=== PATIENT | female | born 1990 | race Caucasian/White ===

== ENCOUNTER → 2016-12-31 | Outpatient (CLI) | payer OTHER ==
[~2016-12-31] MED LIST: ACHD5005 PO; BIRTH CONTROL PO; GABAPENTIN PO; LINA5TAB PO; MAGNESIUM PO; METFORMIN PO; PREVACID PO; SERT100T8 PO; SPIRONOLACTONE PO; VITAMIN D PO
== END ==
LOC: LAB 16:51
PROVIDERS: ATTEND Family Medicine
DX: Z02.0 Encounter for examination for admission to educational institution (principal); Z11.1 Encounter for screening for respiratory tuberculosis
CPT/HCPCS: 36415; 86480

== ENCOUNTER → 2017-03-12 | Outpatient (CLI) | payer OTHER ==
[2017-03-12 12:13] LABS: MEAN PLATELET VOLUME 9.6 FL (7.4-10.4); RED BLOOD COUNT 4.77 10^6/uL (4.35-5.85); RED CELL DISTRIBUTION WIDTH 12.5 % (10.0-14.5); WHITE BLOOD COUNT 5.9 10^3/uL (4.3-11.0)
[2017-03-12 12:30] LABS: ALANINE AMINOTRANSFERASE 14 U/L (0-55); ALBUMIN 3.9 GM/DL (3.2-4.5); ANION GAP 8 MMOL/L (5-14); ASPARTATE AMINO TRANSFERASE 21 U/L (5-34); BILIRUBIN,TOTAL 0.4 MG/DL (0.1-1.0); BLOOD UREA NITROGEN 9 MG/DL (7-18); BUN/CREATININE RATIO 12; CALCIUM 9.2 MG/DL (8.5-10.1); CARBON DIOXIDE 25 MMOL/L (21-32); CHLORIDE 105 MMOL/L (98-107); CREATININE SERUM 0.77 MG/DL (0.60-1.30); GFR ESTIMATED > 60; GLUCOSE 99 MG/DL (70-105); POTASSIUM 4.2 MMOL/L (3.6-5.0); SODIUM 138 MMOL/L (135-145)
[2017-03-12 12:50] LABS: THYROID STIMULATING HORMONE 2.36 UIU/ML (0.35-4.94)
== END ==
LOC: LAB 11:54
PROVIDERS: ATTEND Family Medicine
DX: R03.0 Elevated blood-pressure reading, without diagnosis of hypertension (principal); F33.9 Major depressive disorder, recurrent, unspecified; E22.1 Hyperprolactinemia
CPT/HCPCS: 36415; 80053; 84146; 84443; 85027

== ENCOUNTER 2017-08-13 14:47 | Emergency (ER) | payer OTHER ==
[~2017-08-13] VITALS: Ht 160 cm; Wt 91.2 kg
[2017-08-13] MEDS ORDERED: NS IV 500 ML 500 ML IV ONE (15:07)
--- NOTE | 2017-08-13 15:12 | ED Neurological Problem ---
General Chief Complaint: Neuro-Stroke Like Symptoms Stated Complaint: RIGHT SIDE ARM HEAVINESS SLURRED SPEACH Nursing Triage Note: ARRIVED VIA AMB WITH COMPLAINTS OF SLURRED SPEECH AND RIGHT ARM WEAKNESS THAT STARTED AT APPX 1415 LASTING APPX 3 MINUTES. PT STATES NOW SHE JUST FEELS WEAK ALL OVER. PT STATES SHE STARTED A KETO DIET 1 WEEK AGO. Nursing Sepsis Screen: No Definite Risk Source: patient Exam Limitations: no limitations History of Present Illness Date Seen by Provider: Aug 13, 2017 Time Seen by Provider: 14:52 Initial Comments Patient presents to ER by private conveyance with her and friend with a chief complaint she was riding around the car with him when she began to have a pressure willing up the back of her neck and occipital region headache that traveled to the top of her head. She rates it now is a 1-2 out of 10. She says she has a history of occasional tension headaches. She says she also started having numbness and tingling specimen her right arm and her left face and left tongue. She says she started having weakness and couldn't hold on to her phone with either her hands. She was hyperventilating. She has no personal or family history of stroke or heart attack. She denies alcohol, drugs or tobacco usage. She does have high blood pressure for which she uses metoprolol 50 twice a day. She's never had symptoms like this before she denies a history of migraine headaches or other neurologic symptoms. He is having no blindness, blurry vision , double vision, nausea, chest pain, abdominal pain, diarrhea, rash, fever, chills, shortness of breath. She was also having some slurred speech at that time. Last known well time was witnessed by family at approximately 1415. By the time she presented to the ER all her symptoms had resolved. She is on Sprintec Allergies and Home Medications Allergies Coded Allergies: Penicillins (Unverified Allergy, Unknown, PT TOLERATED AMPICILLIN WITH NO REACTION, 12/16/13) PT HAS NEVER TAKEN PENICILLINS DUE TO A FAMILY TENDENCY TO HAVE SEVERE ALLERGIC REACTIONS Home Medications Hydrocodone Bit/Acetaminophen 1 Tab Tab, 1 TAB PO Q4H PRN for PAIN Prescribed by: BRIEN RAMIRES on 12/16/13 1736 Linagliptin 5 Mg Tablet, 5 MG PO DAILY Prescribed by: VALERIE LOJA on 12/15/132149 Sertraline Hcl 100 Mg Tablet, 100 MG PO DAILY Prescribed by: VALERIE LOJA on 12/15/132149 [ Control] , PO DAILY Prescribed by: VALERIE LOJA on 12/15/132149 [Gabapentin] , PO DAILY Prescribed by: VALERIE LOJA on 12/15/132143 [Magnesium] , PO DAILY Prescribed by: VALERIE LOJA on 12/15/132149 [Metformin] , PO DAILY Prescribed by: VALERIE LOJA on 12/15/132149 [Prevacid] , PO DAILY Prescribed by: VALERIE LOJA on 12/15/132149 [Spironolatone] , 2 TAB PO DAILY Prescribed by: VALERIE LOJA on 12/15/132149 [Vitamin D] , PO DAILY Prescribed by: VALERIE LOJA on 12/15/132149 Patient Home Medication List Home Medication List Reviewed: Yes Constitutional: No chills, No diaphoresis Eyes: Denies Blindness, Denies Blurred Vision, Denies Decreased Acuity Ears, Nose, Mouth, Throat: denies ear pain, denies ear discharge Respiratory: No cough, No short of breath Cardiovascular: No chest pain, No palpitations, No syncope, No vascular heart diseas Gastrointestinal: No abdominal pain, No constipation, No diarrhea, No nausea, No vomiting Genitourinary: No discharge, No dysuria Musculoskeletal: No back pain, No joint pain Skin: No pruritus, No rash Psychiatric/Neurological: See HPI, Headache, Numbness, Tingling, Weakness Past Fxbrsbg-Wjamlh-Oqjdiz Hx Patient Social History Alcohol Use: Denies Use Recreational Drug Use: No Smoking Status: Never a Smoker Recent Foreign Travel: No Contact w/Someone Who Travel: No Recent Infectious Disease Expo: No Immunizations Up To Date Tetanus Booster (TDap): Unknown PED Vaccines UTD: Yes Surgeries History of Surgeries: Yes (WISDOM TEETH REMOVAL) Respiratory History of Respiratory Disorde: No Cardiovascular History of Cardiac Disorders: No Neurological History of Neurological Disord: No Reproductive System Sexually Transmitted Disease: No HIV/AIDS: No Female Reproductive Disorders: Menstrual Problems Musculoskeletal History of Musculoskeletal Dis: No Endocrine History of Endocrine Disorders: Yes (INSULIN RESISTANT) Cancer History of Cancer: No Psychosocial History of Psychiatric Problem: Yes Behavioral Health Disorders: Depression Integumentary History of Skin or Integumenta: No Blood Transfusions History of Blood Disorders: No Adverse Reaction to a Blood Tr: No Physical Exam Vital Signs Vital Signs - First Documented 08/13/17 14:47 Temp 96.1 Pulse 87 Resp 18 B/P (MAP) 157/93 (114) Pulse Ox 99 Capillary Refill : Less Than 3 Seconds General Appearance: WD/WN, no apparent distress (Smiling and laughing) HEENT: PERRL/EOMI, normal ENT inspection, TMs normal, pharynx normal Neck: non-tender, full range of motion, supple, normal inspection Respiratory: chest non-tender, lungs clear, normal breath sounds, no respiratory distress, no accessory muscle use Cardiovascular: normal peripheral pulses, regular rate, rhythm, no edema, no gallop, no murmur Peripheral Pulses: 2+ Radial Pulses (R), 2+ Radial Pulses (L) Gastrointestinal: normal bowel sounds, non tender, soft, no organomegaly Extremities: normal inspection, no pedal edema, normal capillary refill Neurologic/Psychiatric: alert, oriented x 3 Crainal Nerves: normal hearing, normal speech, PERRL Coordination/Gait: normal finger to nose, normal gait Motor/Sensory: no motor deficit, no sensory deficit, no pronator drift Reflexes: 2+ Knee (R), 2+ Knee (L) Skin: normal color, warm/dry Stroke Onset of Symptoms Date of Onset of Symptoms: Aug 13, 2017 Time of Symptom Onset: 14:15 Onset of Symptoms: Yes Symptoms onset unknown: No NIH Stroke Scale Assessment Select: Initial Level of Consciousness: 0=Alert (0), Level of Consciousness- Questions: 0=Answers both month/age (0), Gaze: Normal (0), Visual [place]: 0=No visual loss (0), Facial Movement (Facial Paresis): 0=Normal symmetrical mnt (0) , Motor Function-Arms Right: 0=No drift (0), Motor Function-Arms Left: 0=No drift (0), Motor Function-Legs Right: 0=No drift (0), Motor Function-Legs Left: 0=No drift (0), Limb Ataxia: 0=Absent (0), Sensory: 0=Normal:no loss (0), Best Language: 0=No aphasia (0), Dysarthria: 0=Normal (0), Extinction & Inattention: 0=No abnormality (0), Total: 0 Stroke Thrombolytic Exclusion Age 18 or Over: Yes Acute intenal hemorrhage: No History of CVA: No Uncontrolled Coagulation Defec: No Intracranial Hemorrhage: No Severe Hypertension: No GI or Bleed: No Subarachnoid Hemorrhage: No Intracranial Neoplasm/Aneurysm: No Oral Anticoagulants: No Surgery or Trauma: No Puncture of Non-Compressible V: No Recent CPR: No Diabetic Hemorrhagic Retinopat: No Organ Biopsy: No Recent Obstetric Delivery: No Glucose: No (99) Significant Hepatic Dysfunctio: No NIH Stoke Scale >22: No Bacterial Endocarditis: No Pericarditis: No Improving Symptoms: No Platelets: No TPA Contraindication: No IV - TPa Received IV - TPa Procedure Performed?: No Progress/Results/Core Measures Results/Orders Lab Results Laboratory Tests Test 08/13/17 14:55 08/13/17 14:56 08/13/17 15:22 Range/Units White Blood Count 5.1 4.3-11.0 10^3/uL Red Blood Count 4.91 4.35-5.85 10^6/uL Hemoglobin 15.1 11.5-16.0 G/DL Hematocrit 42 35-52 % Mean Corpuscular Volume 86 80-99 FL Mean Corpuscular Hemoglobin 31 25-34 PG Mean Corpuscular Hemoglobin Concent 36 32-36 G/DL Red Cell Distribution Width 12.7 10.0-14.5 % Platelet Count 279 130-400 10^3/uL Mean Platelet Volume 10.1 7.4-10.4 FL Neutrophils (%) (Auto) 41 L 42-75 % Lymphocytes (%) (Auto) 48 H 12-44 % Monocytes (%) (Auto) 10 0-12 % Eosinophils (%) (Auto) 1 0-10 % Basophils (%) (Auto) 0 0-10 % Neutrophils # (Auto) 2.1 1.8-7.8 X 10^3 Lymphocytes # (Auto) 2.4 1.0-4.0 X 10^3 Monocytes # (Auto) 0.5 0.0-1.0 X 10^3 Eosinophils # (Auto) 0.0 0.0-0.3 10^3/uL Basophils # (Auto) 0.0 0.0-0.1 10^3/uL Sodium Level 137 135-145 MMOL/L Potassium Level 3.8 3.6-5.0 MMOL/L Chloride Level 101 98-107 MMOL/L Carbon Dioxide Level 24 21-32 MMOL/L Anion Gap 12 5-14 MMOL/L Blood Urea Nitrogen 11 7-18 MG/DL Creatinine 0.88 0.60-1.30 MG/DL Estimat Glomerular Filtration Rate > 60 BUN/Creatinine Ratio 13 Glucose Level 103 70-105 MG/DL Calcium Level 10.2 H 8.5-10.1 MG/DL Total Bilirubin 0.5 0.1-1.0 MG/DL Aspartate Amino Transf (AST/SGOT) 25 5-34 U/L Alanine Aminotransferase (ALT/SGPT) 12 0-55 U/L Alkaline Phosphatase 65 40-136 U/L Troponin I < 0.30 <0.30 NG/ML C-Reactive Protein High Sensitivity 1.12 H 0.00-0.50 MG/DL Total Protein 7.8 6.4-8.2 GM/DL Albumin 4.5 3.2-4.5 GM/DL Glucometer 99 70-110 MG/DL Urine Color YELLOW Urine Clarity CLEAR Urine pH 5 5-9 Urine Specific [place] 1.015 L 1.016-1.022 Urine Protein NEGATIVE NEGATIVE Urine Glucose (UA) NEGATIVE NEGATIVE Urine Ketones 3+ H NEGATIVE Urine Nitrite NEGATIVE NEGATIVE Urine Bilirubin NEGATIVE NEGATIVE Urine Urobilinogen NORMAL NORMAL MG/DL Urine Leukocyte Esterase 2+ H NEGATIVE Urine RBC (Auto) 5+ H NEGATIVE Urine RBC NONE /HPF Urine WBC 0-2 /HPF Urine Squamous Epithelial Cells 5-10 /HPF Urine Crystals NONE /LPF Urine Bacteria NEGATIVE /HPF Urine Casts NONE /LPF Urine Mucus NEGATIVE /LPF Urine Culture Indicated NO Urine Opiates Screen NEGATIVE NEGATIVE Urine Oxycodone Screen NEGATIVE NEGATIVE Urine Methadone Screen NEGATIVE NEGATIVE Urine Propoxyphene Screen NEGATIVE NEGATIVE Urine Barbiturates Screen NEGATIVE NEGATIVE Ur Tricyclic Antidepressants Screen NEGATIVE NEGATIVE Urine Phencyclidine Screen NEGATIVE NEGATIVE Urine Amphetamines Screen NEGATIVE NEGATIVE Urine Methamphetamines Screen NEGATIVE NEGATIVE Urine Benzodiazepines Screen NEGATIVE NEGATIVE Urine Cocaine Screen NEGATIVE NEGATIVE Urine Cannabinoids Screen NEGATIVE NEGATIVE My Orders Orders - KHARI STILES Ct Head Wo-R/O Stroke (08/13/17 14:56) Cbc With Automated Diff (08/13/17 15:07) Comprehensive Metabolic Panel (08/13/17 15:07) Hs C Reactive Protein (08/13/17 15:07) Drug Screen Stat (Urine) (08/13/17 15:07) Ua Culture If Indicated (08/13/17 15:07) Saline Lock/Iv-Start (08/13/17 15:07) Ns Iv 500 Ml (Sodium Chloride 0.9%) (08/13/17 15:07) Ekg Tracing (08/13/17 15:12) Continuous Ekg Monitoring (08/13/17 15:12) Troponin I (08/13/17 15:12) Ketorolac Injection (Toradol Injection) (08/13/17 16:00) Ondansetron Injection (Zofran Injectio (08/13/17 16:00) Medications Given in ED Current Medications Medications Dose Ordered Sig/Bora Route Start Time Stop Time Status Last Admin Dose Admin Ketorolac Tromethamine 15 mg ONCE ONCE IVP 08/13/17 16:00 08/13/17 16:01 DC 08/13/17 15:56 15 MG Ondansetron HCl 4 mg ONCE ONCE IVP 08/13/17 16:00 08/13/17 16:01 DC 08/13/17 15:56 4 MG Sodium Chloride 500 ml @ 0 mls/hr Q0M ONCE IV 08/13/17 15:07 08/13/17 15:10 DC 08/13/17 15:22 500 MLS/HR Vital Signs/I&O Vital Sign - Last 12Hours 08/13/17 14:47 Temp 96.1 Pulse 87 Resp 18 B/P (MAP) 157/93 (114) Pulse Ox 99 Blood Pressure Mean: 114 Progress Note #1: Time: 15:24 Progress Note Only significant risk factors for stroke would be hypertension however she is very unlikely be having a stroke. Her symptoms resolved rather quickly. Could be neurologic symptoms related headache versus anxiety versus other question kalyn. We have some basic labs. EKG was unremarkable. Progress Note #2: Time: 16:17 Progress Note Patient's neurologic symptoms, numbness and tingling in her right arm and left face had pretty much resolved shortly after arrival however her parents arrived and then her headache came back about 6-8 out of 10 and she began to have numbness tingling weakness again in her right arm and left face. On examination she has symmetric face she has completely intact cranial nerves. She has no motor or sensory deficits times any 4 extremities. Deep tendon reflexes continue to be unremarkable a 2 out of 4 times all 4 extremities patellar and biceps. We have given her some Zofran which helped with her nausea came back as well as some ketorolac for her headache. We will observe her for a short bit longer to see if her pain improves on the ketorolac however there is nothing in laboratory to suggest a cause for her symptoms and the imaging is clean. Progress Note #3: Time: 16:41 Progress Note Patient's nausea is gone and her headache is improving. After having a long discussion about possibility of atypical migraines with neurologic presentation and have her follow-up with her primary care physician. If the pattern changes she can follow-up sooner or return here. Any of her some nausea medicine and if it becomes more of a pattern then she and her primary care physician to talk about prophylaxis versus following up with neurology. She and her family are okay with this plan. ECG Initial ECG Impression Date: Aug 13, 2017 Initial ECG Impression Time: 15:10 Initial ECG Rate: 78 Initial ECG Rhythm: Normal Sinus Initial ECG Intervals: Normal Initial ECG Impression: Normal, Nonspecific Changes Initial ECG Comparisson: No Previous ECG Available Comment No T-wave elevation or depression. Diagnostic Imaging Diagonstic Imaging: CT Plain Films/CT/US/NM/MRI: head (c/o) Comments VIA [facility]. [place], [place] NAME: CHICO HAHN [facility] REC#: [id number] PT STATUS: REG ER : 1990 PHYSICIAN: KHARI STILES MD ADMIT DATE: 08/13/17/ER Draft Date of Exam:08/13/17 CT HEAD WO-R/O STROKE INDICATION: Slurred speech. Noncontrast brain CT is performed. There are no extra-axial fluid collections. No intracranial hemorrhage. No intercranial mass or mass effect. No midline shift. The ventricles are normal in size and position. There are no focal parenchymal abnormalities in the brain. Calvarial windows were unremarkable. IMPRESSION: Negative noncontrast brain CT. Dictated on workstation # [id number] Dict: 08/13/17 1521 Trans: 08/13/17 1524 [facility] [id number] Interpreted by: IKER TRACY MD Electronically signed by: Reviewed: Reviewed by Me Departure Impression Impression: Primary Impression: Migraine Qualified Codes: G43.009 - Migraine without aura, not intractable, without status migrainosus Additional Impressions: Paresthesia of right arm Facial paresthesia Disposition: 01 HOME, SELF-CARE Condition: Improved Departure-Patient Inst. Decision time for Depature: 16:44 Referrals: THALIA CAMPBELL MD (PCP/Family) Primary Care Physician Patient Instructions: Headache, Adult (DC) Add. Discharge Instructions: Tomorrow morning call Dr. Campbell and requests an appointment for the following week to discuss your headache with paresthesias symptoms. If you're having pain you can use ibuprofen 800 mg every 8 hours. This may also be helpful for the paresthesias. If you're having nausea you can take one tablet of Zofran every [address] it under tongue and allow it to absorb through your mouth. If your symptoms become more frequent, persistent or change significantly you can follow-up with Dr. Campbell sooner or return to the ER for further evaluation and management. All discharge instructions reviewed with patient and/or family. Voiced understanding. Scripts Ondansetron (Zofran Odt) 4 Mg Tab.rapdis 4 MG SL Q6H Y for NAUSEA/VOMITING-1ST LINE, #20 TAB 0 Refills Prov: KHARI STILES 08/13/17 Copy Copies To 1: THALIA CAMPBELL MD, TITUS J Aug 13, 2017 15:12
[2017-08-13 15:16] LABS: BASOPHILS % (AUTO) 0 % (0-10); EOSINOPHILS % (AUTO) 1 % (0-10); HEMATOCRIT 42 % (35-52); HEMOGLOBIN 15.1 G/DL (11.5-16.0); LYMPHOCYTES # (AUTO) 2.4 X 10^3 (1.0-4.0); LYMPHOCYTES % (AUTO) 48 % (12-44); MEAN CORPUSCULAR HEMOGLOBIN 31 PG (25-34); MEAN CORPUSCULAR HGB CONC 36 G/DL (32-36); MEAN CORPUSCULAR VOLUME 86 FL (80-99); MEAN PLATELET VOLUME 10.1 FL (7.4-10.4); MONOCYTES # (AUTO) 0.5 X 10^3 (0.0-1.0); MONOCYTES % (AUTO) 10 % (0-12); NEUTROPHILS # (AUTO) 2.1 X 10^3 (1.8-7.8); NEUTROPHILS % (AUTO) 41 % (42-75); PLATELET COUNT 279 10^3/uL (130-400); RED BLOOD COUNT 4.91 10^6/uL (4.35-5.85); RED CELL DISTRIBUTION WIDTH 12.7 % (10.0-14.5); WHITE BLOOD COUNT 5.1 10^3/uL (4.3-11.0)
--- NOTE | 2017-08-13 15:25 | Diagnostic Imaging Report ---
INDICATION: Slurred speech. Noncontrast brain CT is performed. There are no extra-axial fluid collections. No intracranial hemorrhage. No intercranial mass or mass effect. No midline shift. The ventricles are normal in size and position. There are no focal parenchymal abnormalities in the brain. Calvarial windows were unremarkable. IMPRESSION: Negative noncontrast brain CT. Dictated by: Dictated on workstation # [id number]
[2017-08-13 15:32] LABS: BILIRUBIN,URINE NEGATIVE (NEGATIVE); CLARITY,URINE CLEAR; COLOR,URINE YELLOW; GLUCOSE, URINE (UA) NEGATIVE (NEGATIVE); KETONES,URINE 3+ (NEGATIVE); LEUKOCYTE ESTERASE ,URINE 2+ (NEGATIVE); NITRITE,URINE NEGATIVE (NEGATIVE); PH,URINE 5 (5-9); PROTEIN,URINE NEGATIVE (NEGATIVE); UROBILINOGEN,URINE NORMAL (NORMAL)
[2017-08-13 15:35] LABS: ALANINE AMINOTRANSFERASE 12 U/L (0-55); ALBUMIN 4.5 GM/DL (3.2-4.5); ALKALINE PHOSPHATASE 65 U/L (40-136); BILIRUBIN,TOTAL 0.5 MG/DL (0.1-1.0); BUN/CREATININE RATIO 13; CALCIUM 10.2 MG/DL (8.5-10.1); CARBON DIOXIDE 24 MMOL/L (21-32); CHLORIDE 101 MMOL/L (98-107); CREATININE SERUM 0.88 MG/DL (0.60-1.30); GFR ESTIMATED > 60; GLUCOSE 103 MG/DL (70-105); POTASSIUM 3.8 MMOL/L (3.6-5.0); SODIUM 137 MMOL/L (135-145); TOTAL PROTEIN 7.8 GM/DL (6.4-8.2)
[2017-08-13 15:39] LABS: BACTERIA,URINE NEGATIVE /HPF; WBC,URINE 0-2 /HPF
[2017-08-13 15:45] LABS: AMPHETAMINE SCREEN, URINE NEGATIVE (NEGATIVE); BARBITURATE SCREEN URINE NEGATIVE (NEGATIVE); BENZODIAZEPINES SCREEN URINE NEGATIVE (NEGATIVE); CANNABINOID SCREEN, URINE NEGATIVE (NEGATIVE); COCAINE SCREEN URINE NEGATIVE (NEGATIVE); METHADONE STAT NEGATIVE (NEGATIVE); METHAMPHETAMINE SCREEN URINE S NEGATIVE (NEGATIVE); OPIATE SCREEN URINE NEGATIVE (NEGATIVE); OXYCODONE STAT NEGATIVE (NEGATIVE); PROPOXYPHENE STAT NEGATIVE (NEGATIVE); TRICYCLIC ANTIDEPRESSANTS SCRE NEGATIVE (NEGATIVE)
[2017-08-13] MEDS ORDERED: KETOROLAC 30 MG/ML VIAL IVP ONE (16:00)
[2017-08-13] MEDS ORDERED: ONDANSETRON 4 MG/2 ML (SDV) Z0FRAN IVP ONE (16:00)
[2017-08-13] MEDS ORDERED: ONDA4TAB8 SL (16:48)
[2017-08-13 16:57] VITALS: BP 119/71
== END 2017-08-13 16:57 | disposition home or self-care (01) ==
LOC: EDUNIT# 14:47 → ER 14:49
DX: G43.909 Migraine, unspecified, not intractable, without status migrainosus (principal); R20.2 Paresthesia of skin; F32.9 Major depressive disorder, single episode, unspecified; Z86.39 Personal history of other endocrine, nutritional and metabolic disease; Z79.84 Long term (current) use of oral hypoglycemic drugs; Z88.0 Allergy status to penicillin
CPT/HCPCS: 36415; 70450; 80053; 80306; 81000; 82962; 84484; 85025; 86141; 93005; 96374; 96375

== ENCOUNTER → 2018-06-04 | Outpatient (CLI) | payer OTHER ==
[~2018-06-04] MED LIST changes: +ONDA4TAB8 SL
[2018-06-04 12:04] LABS: BASOPHILS % (AUTO) 0 % (0-10); EOSINOPHILS # (AUTO) 0.1 10^3/uL (0.0-0.3); EOSINOPHILS % (AUTO) 2 % (0-10); HEMATOCRIT 38 % (35-52); LYMPHOCYTES # (AUTO) 2.3 X 10^3 (1.0-4.0); LYMPHOCYTES % (AUTO) 37 % (12-44); MEAN CORPUSCULAR HEMOGLOBIN 30 PG (25-34); MEAN CORPUSCULAR HGB CONC 34 G/DL (32-36); MEAN CORPUSCULAR VOLUME 88 FL (80-99); MEAN PLATELET VOLUME 9.5 FL (7.4-10.4); MONOCYTES # (AUTO) 0.7 X 10^3 (0.0-1.0); MONOCYTES % (AUTO) 11 % (0-12); NEUTROPHILS # (AUTO) 3.2 X 10^3 (1.8-7.8); NEUTROPHILS % (AUTO) 50 % (42-75); PLATELET COUNT 286 10^3/uL (130-400); RED BLOOD COUNT 4.33 10^6/uL (4.35-5.85); RED CELL DISTRIBUTION WIDTH 12.6 % (10.0-14.5); WHITE BLOOD COUNT 6.3 10^3/uL (4.3-11.0)
[2018-06-04 12:33] LABS: ALANINE AMINOTRANSFERASE 16 U/L (0-55); ALBUMIN 4.2 GM/DL (3.2-4.5); ALKALINE PHOSPHATASE 72 U/L (40-136); BILIRUBIN,TOTAL 0.5 MG/DL (0.1-1.0); BUN/CREATININE RATIO 18; CALCIUM 9.3 MG/DL (8.5-10.1); CARBON DIOXIDE 23 MMOL/L (21-32); CHLORIDE 105 MMOL/L (98-107); CREATININE SERUM 0.73 MG/DL (0.60-1.30); GFR ESTIMATED > 60; GLUCOSE 96 MG/DL (70-105); POTASSIUM 3.8 MMOL/L (3.6-5.0); SODIUM 136 MMOL/L (135-145); TOTAL PROTEIN 6.9 GM/DL (6.4-8.2)
== END ==
LOC: LAB 11:21
PROVIDERS: ATTEND Family Medicine
DX: N91.2 Amenorrhea, unspecified (principal); Z32.01 Encounter for pregnancy test, result positive
CPT/HCPCS: 36415; 80053; 84443; 84702; 85025; 86592; 86703; 86762; 86787; 87340; 87491; 87591

== ENCOUNTER → 2018-09-24 | Outpatient (CLI) | payer OTHER ==
--- NOTE | 2018-09-24 15:33 | Diagnostic Imaging Report ---
INDICATION: patient, survey. TECHNIQUE: Multiple real-time grayscale images were obtained over the gravid uterus. COMPARISON: None. FINDINGS: A single live intrauterine fetus is seen measuring 21 weeks 1 day in size with sonographic EDC of 02/03/2019. The fetus is in breech presentation at this time. Amniotic fluid was qualitatively normal. Placenta is grade 1 and anterior with no evidence of previa. heart rate is 155 beats per minute. survey showed normal-appearing kidneys, bladder, and stomach as well as intracranial ventricles. Normal appearing four-chamber heart view is seen. Three-vessel cord and cord insertion appear normal. The spine was not well seen due to position. Maternal adnexa could not be visualized. Biometrical measurements are as follows: Biparietal 4.98 cm, age 21 weeks 1 days. Head circumference 18.41 cm, age 20 weeks 6 days. Abdominal circumference 15.95 cm, age 21 weeks 1 days. Femur length 3.51 cm, age 21 weeks 1 days. Sonographic estimate age: 21 weeks 1 days. Sonographic estimated date of delivery: 02/03/2019. Estimated Weight: 395 gm (+/- 58 gm). LMP percentile: 85%. heart rate: 155 beats per minute. number: 1 of 1. IMPRESSION: Single live intrauterine fetus measuring 21 weeks 1 day in size. There is no detectable abnormality although the spine not well visualized on these views. Consider limited followup as clinically warranted. Dictated by: Dictated on workstation # [id number]
== END ==
LOC: RAD 13:17
PROVIDERS: ATTEND Obstetrics & Gynecology
DX: Z36.89 Encounter for other specified antenatal screening (principal); Z3A.21 21 weeks gestation of pregnancy
CPT/HCPCS: 76805

== ENCOUNTER 2018-10-15 15:16 | Outpatient (CLI) | payer OTHER ==
[~2018-10-15] VITALS: Ht 160 cm; Wt 87.5 kg
--- NOTE | 2018-10-15 15:08 | NUR ---
CHICO HAHN presented to unit via ambulation from home, accompanied by mother, with c/o LEAKING. CHICO HAHN weighed, gowned, voided, and to bed. EFHM and TOCO applied, VS taken. CHICO HAHN oriented to bed controls, call light, TV, heat, and A/C controls.
[2018-10-15] MEDS ORDERED: DOCU-143 PO (15:49)
[2018-10-15] MEDS ORDERED: PREN-53 PO (15:49)
[2018-10-15] MEDS ORDERED: DOXY1TAB6 PO (15:49)
[2018-10-15] MEDS ORDERED: METH250T5 PO (15:49)
[2018-10-15] MEDS ORDERED: FAMO20TA3 PO (15:49)
[2018-10-15 15:50] LABS: BILIRUBIN,URINE NEGATIVE (NEGATIVE); CLARITY,URINE SLIGHTLY CLOUDY; COLOR,URINE YELLOW; GLUCOSE, URINE (UA) NEGATIVE (NEGATIVE); KETONES,URINE NEGATIVE (NEGATIVE); LEUKOCYTE ESTERASE ,URINE 2+ (NEGATIVE); NITRITE,URINE NEGATIVE (NEGATIVE); PH,URINE 7 (5-9); PROTEIN,URINE NEGATIVE (NEGATIVE); UROBILINOGEN,URINE NORMAL (NORMAL)
--- NOTE | 2018-10-15 16:00 | NUR ---
TOCO and US on pt since pt arrival. FHR appropriate for 23weeks, ranging 150's-160's with several small variables and one variable into the 80's, lasting 40 sec. No ctx noted, but one or two 30sec irritability noted.
[2018-10-15 16:04] LABS: BACTERIA,URINE FEW /HPF; RBC,URINE 0-2 /HPF; WBC,URINE 0-2 /HPF
--- NOTE | 2018-10-15 16:11 | NUR ---
Dr Patrick called and notified of pt arrival, c/o leaking fluid since around midnight and occasional, mild, lower abd cramping. Dr. Patrick notified of nitrazine, VS, FHR, ctx pattern, milky white vaginal discharge, other assessment findings. Reported to that pt's mom is concerned that "her belly looks so much smaller than yesterday." Order rec'd for wet prep and US for fluid evaluation.
--- NOTE | 2018-10-15 16:51 | NUR ---
Dr Patrick called with wet prep and US results. May D/C pt home with precautions.
--- NOTE | 2018-10-15 17:07 | NUR ---
Discharge instructions explained to pt with copy provided to pt. Pt verbalizes understanding of instruction and denies questions or concerns. Pt ambulates self off unit accompanied by mother to private vehicle with all personal belongings. No s/s of distress noted.
--- NOTE | 2018-10-15 17:08 | Diagnostic Imaging Report ---
INDICATION: Leaking fluid. EXAMINATION: Multiple real-time grayscale images were obtained over the gravid uterus in various projections. FINDINGS: There is a single living intrauterine in cephalic presentation. The biometry correlates with a gestational age of 23 weeks 2 days. Amniotic fluid index is 12.29. The placenta is fundal. There is no previa. Heart rate is 156 beats per minute and regular. Cervical length is 4.9 cm. IMPRESSION: Single living intrauterine in cephalic presentation. There is normal volume amniotic fluid with an amniotic fluid index of 12.29. Dictated by: Dictated on workstation # [id number]
--- NOTE | 2018-10-19 22:48 | Physician Query-Final Dx ---
BRIGITTE GUAMAN 10/19/18 2248: Clinic Account Progress/Dx Physician Query: Please give diagnosis Need dx and weeks of gestation Date of Service October 15, 2018 at 15:16 HEATH ANGELO DO 10/20/18 0337: Clinic Account Progress/Dx DIAGNOSIS: Diagnosis 24 weeks gestation Vaginal watery discharge Nausea/Vomitting in BRIGITTE GUAMAN October 19, 2018 22:48 HEATH ANGELO DO October 20, 2018 03:37
== END 2018-10-15 17:07 | disposition home or self-care (01) ==
LOC: WSo 15:16 → LDRP 15:17 → WSo 17:07
PROVIDERS: ATTEND Obstetrics & Gynecology
DX: O21.2 Late vomiting of pregnancy (principal); O26.892 Other specified pregnancy related conditions, second trimester; N89.8 Other specified noninflammatory disorders of vagina; Z3A.24 24 weeks gestation of pregnancy
CPT/HCPCS: 76815; 81000; 87210; 99214

== ENCOUNTER 2018-11-07 15:08 | Outpatient (CLI) | payer OTHER ==
[~2018-11-07] VITALS: Ht 160 cm; Wt 85.9 kg
[~2018-11-07 15:08] MED LIST changes: +DOCU-143 PO; +DOXY1TAB6 PO; +FAMO20TA3 PO; +METH250T5 PO; +PREN-53 PO
--- NOTE | 2018-11-07 15:16 | NUR ---
CHICO HAHN presented to unit via ambulation from ED, accompanied by , with c/o NAUSEA, VOMITTING. CHICO HAHN weighed, gowned, voided, and to bed. EFHM and TOCO applied, VS taken. CHICO HAHN oriented to bed controls, call light, TV, heat, and A/C controls.
[2018-11-07 15:23] VITALS: BP 112/72
[2018-11-07 15:39] LABS: BILIRUBIN,URINE NEGATIVE (NEGATIVE); CLARITY,URINE CLEAR; COLOR,URINE YELLOW; GLUCOSE, URINE (UA) NEGATIVE (NEGATIVE); KETONES,URINE 1+ (NEGATIVE); LEUKOCYTE ESTERASE ,URINE 1+ (NEGATIVE); NITRITE,URINE NEGATIVE (NEGATIVE); PH,URINE 5 (5-9); PROTEIN,URINE 1+ (NEGATIVE); UROBILINOGEN,URINE 1 MG/DL (NORMAL)
[2018-11-07 15:54] LABS: BACTERIA,URINE NEGATIVE /HPF; WBC,URINE RARE /HPF
[2018-11-07] MEDS ORDERED: NS IV 1000 ML 1,000 ML IV SCH ×2 (16:00→17:45)
[2018-11-07] MEDS ORDERED: PROMETHAZINE INJ 25 MG/ML (PHENERGAN) AMP IVP PRN (16:00)
[2018-11-07] MEDS ORDERED: NS IV 1000 ML 1,000 ML ONE (16:08)
[2018-11-07] MEDS ORDERED: PROMETHAZINE INJ 25 MG/ML (PHENERGAN) AMP ONE (16:12)
[2018-11-07 16:33] LABS: BASOPHILS % (AUTO) 0 % (0-10); EOSINOPHILS # (AUTO) 0.1 10^3/uL (0.0-0.3); EOSINOPHILS % (AUTO) 1 % (0-10); HEMATOCRIT 37 % (35-52); HEMOGLOBIN 13.1 G/DL (11.5-16.0); LYMPHOCYTES # (AUTO) 1.7 X 10^3 (1.0-4.0); LYMPHOCYTES % (AUTO) 21 % (12-44); MEAN CORPUSCULAR HEMOGLOBIN 32 PG (25-34); MEAN CORPUSCULAR HGB CONC 35 G/DL (32-36); MEAN CORPUSCULAR VOLUME 92 FL (80-99); MEAN PLATELET VOLUME 9.9 FL (7.4-10.4); MONOCYTES # (AUTO) 0.6 X 10^3 (0.0-1.0); MONOCYTES % (AUTO) 8 % (0-12); NEUTROPHILS # (AUTO) 5.6 X 10^3 (1.8-7.8); NEUTROPHILS % (AUTO) 70 % (42-75); PLATELET COUNT 216 10^3/uL (130-400); RED CELL DISTRIBUTION WIDTH 12.9 % (10.0-14.5)
--- NOTE | 2018-11-07 16:37 | NUR ---
FHR tracing reactive for gestational age (26.4 weeks) with FHR baseline 150 bpm and accels up to 160's. Variable decels noted. No uterine ctx's noted. Mild uterine irritability present. Patient denies ctx's. EFM/TOCO DC'd.
[2018-11-07 16:53] LABS: ALANINE AMINOTRANSFERASE 6 U/L (0-55); ALBUMIN 3.5 GM/DL (3.2-4.5); ALKALINE PHOSPHATASE 64 U/L (40-136); BILIRUBIN,TOTAL 0.4 MG/DL (0.1-1.0); BUN/CREATININE RATIO 11; CARBON DIOXIDE 22 MMOL/L (21-32); CHLORIDE 105 MMOL/L (98-107); CREATININE SERUM 0.62 MG/DL (0.60-1.30); GFR ESTIMATED > 60; GLUCOSE 69 MG/DL (70-105); POTASSIUM 3.8 MMOL/L (3.6-5.0); SODIUM 136 MMOL/L (135-145); TOTAL PROTEIN 6.2 GM/DL (6.4-8.2)
[2018-11-07] MEDS ORDERED: PROM25TA14 PO (18:23)
[2018-11-07 19:25] VITALS: BP 86/46
[2018-11-07 19:27] VITALS: BP 84/52
[2018-11-07 19:30] VITALS: BP 91/54
--- NOTE | 2018-11-07 19:36 | NUR ---
This RN called Dr Manjarrez to notify of patient blood pressures of repeated 80's/40's and and 90's/50's. notified that patient states she feels "a little dizzy" but that this is how she "normally feels" and that she denies and nausea. Ok to continue with discharge plans once IV fluids are complete.
--- NOTE | 2018-11-07 19:45 | NUR ---
To patient room at this time after Dr Manjarrez gave ok for discharge home. Discharge instructions given to patient and reviewed. Patient verbalizes understanding. IV removed. Patient waiting on to come back up from parking lot to leave.
--- NOTE | 2018-11-07 19:47 | NUR ---
Patient and ambulating off of floor. Patient denies wanting to use wheelchair. Encouraged patient to call for any needs and to keep appointment with Dr Patrick that is scheduled for tomorrow per patient information. Patient and verbalized understanding.
[2018-11-07] MEDS ORDERED: TERBUTALINE INJ 1 MG/ML (BRETHINE) AMP SC ONE (20:00)
== END 2018-11-07 19:47 ==
LOC: WSo 15:08 → LDRP 15:09 → WSo 19:47
PROVIDERS: ATTEND Obstetrics & Gynecology
DX: O21.2 Late vomiting of pregnancy (principal); Z3A.26 26 weeks gestation of pregnancy
CPT/HCPCS: 36415; 80053; 81000; 85025; 96361; 96374; 99213

== ENCOUNTER 2019-02-02 07:54 | Inpatient (IN) | payer OTHER ==
[2019-02-02] VITALS (43 sets, daily range): BP systolic 90–147; BP diastolic 52–86
[~2019-02-02] VITALS: Ht 160 cm; Wt 98.9 kg
--- NOTE | 2019-02-02 07:50 | NUR ---
CHICO HAHN presented to unit via wheelchair from ED, accompanied by RN and family, with c/o LABOR. CHICO HAHN weighed, gowned, voided, and to bed. EFHM and TOCO applied, VS taken. CHICO HAHN oriented to bed controls, call light, TV, heat, and A/C controls.
[~2019-02-02 07:54] MED LIST changes: +PROM25TA14 PO
--- NOTE | 2019-02-02 08:03 | NUR ---
Dr. Patrick called, notified of pt arrival, c/o ctx since 529 and SROM around 0700. notified of +nitrazine, SVE, other assessment findings. Orders for admission rec'd.
[2019-02-02] MEDS ORDERED: D5 LR IV SOLUTION 1,000 ML IV SCH (08:06)
[2019-02-02] MEDS ORDERED: MINERAL OIL CONCENTRATE 99.9% 15 ML UDC TOP PRN (08:15)
--- NOTE | 2019-02-02 08:28 | History & Physical-OB ---
OB - Chief Complaint & HPI Date/Time Date of Admission: Date of Admission:02/02/19 Date seen by a Provider: Feb 02, 2019 Time Seen by a Provider: 08:15 Chief Complaint/History Hx : 1 Hx Para: 0 Expected Date of Delivery: Feb 09, 2019 Gestational Age in Weeks: 39 Gestational Age in Days: 0 Admission Nurse Assessment Rev: Yes History of Labs GBS neg Allergies and Home Medications Allergies Coded Allergies: Penicillins (Unverified Allergy, Unknown, PT TOLERATED AMPICILLIN WITH NO REACTION, 12/16/13) PT HAS NEVER TAKEN PENICILLINS DUE TO A FAMILY TENDENCY TO HAVE SEVERE ALLERGIC REACTIONS Home Medications Docusate Sodium 100 Mg Capsule, 100 MG PO DAILY, (Reported) Doxylamine Succinate/Vit B6 1 Each Tab.ir.dr, 1 EACH PO DAILY, (Reported) Famotidine 20 Mg Tablet, 20 MG PO PRN, (Reported) Methyldopa 250 Mg Tablet, 250 MG PO BID, (Reported) Ondansetron 4 Mg Tab.rapdis, 4 MG SL Q6H PRN for NAUSEA/VOMITING-1ST LINE Prescribed by: KHARI STILES on 08/13/17 1648 [id number]/Iron Fumarate/FA/Dss 1 Each Tablet, 1 EACH PO DAILY, (Reported) Promethazine HCl 25 Mg Tablet, 25 MG PO Q6H PRN for NAUSEA/VOMITING Prescribed by: TAE LINCOLN on 11/07/18 5483 Patient Home Medication List Home Medication List Reviewed: Yes OB - History Hx of Present Care: Yes Ultrasounds: Normal mid trimester US Obstetrical Complications: None Medical Complications: None Delivery History Hx Blood Disorders: No Adverse Rxn to Tranfusion: No Patient Past Medical History n/a Social History/Family History HIV/AIDS: No Sexually Transmitted Disease: No Immunizations Hepatitis A: Yes Hepatitis B: Yes Tetanus Booster (TDap): Unknown OB - Admission Exam Physical Exam HEENT: NCAT Heart: Rhythm Normal Lungs: Clear Abdomen: Gravid Extremities: Normal Reflexes: Normal Cervical Dilatation: 6cm Effacement: 75% Station: -1 Membranes: Ruptured Amniotic Fluid: Clear Heart Rate: 130's Accelerations: Accelerations Present Decelerations: No Decelerations Short Term Variability: Present Senior Erp Consultant Variability: Average (6-25) Contractions on Admission: < 5 Minutes Apart Intensity: Firm OB - Assessment/Plan/Diagnosis Assessment Admission Dx 28 yo @ 39.0 Active labor at term SROM GBS neg Admission Status: Inpatient Order (span 2 midnights) Reason for Inpatient Admission: 28 yo @ 39.0 Active labor at term SROM GBS neg Plan Plan: Expectant Management HEATH ANGELO DO Feb 02, 2019 08:28
[2019-02-02 08:34] LABS: BASOPHILS % (AUTO) 0 % (0-10); EOSINOPHILS # (AUTO) 0.2 10^3/uL (0.0-0.3); EOSINOPHILS % (AUTO) 2 % (0-10); HEMATOCRIT 39 % (35-52); HEMOGLOBIN 13.5 G/DL (11.5-16.0); LYMPHOCYTES # (AUTO) 1.8 X 10^3 (1.0-4.0); LYMPHOCYTES % (AUTO) 18 % (12-44); MEAN CORPUSCULAR HEMOGLOBIN 31 PG (25-34); MEAN CORPUSCULAR HGB CONC 34 G/DL (32-36); MEAN CORPUSCULAR VOLUME 91 FL (80-99); MEAN PLATELET VOLUME 9.8 FL (7.4-10.4); MONOCYTES # (AUTO) 0.8 X 10^3 (0.0-1.0); MONOCYTES % (AUTO) 8 % (0-12); NEUTROPHILS # (AUTO) 7.2 X 10^3 (1.8-7.8); NEUTROPHILS % (AUTO) 72 % (42-75); PLATELET COUNT 232 10^3/uL (130-400); RED CELL DISTRIBUTION WIDTH 13.3 % (10.0-14.5)
[2019-02-02] MEDS ORDERED: ONDANSETRON 4 MG/2 ML (SDV) Z0FRAN IVP PRN (08:45)
[2019-02-02] MEDS ORDERED: SUFENTA 0.6MCG/ML BUPIVA 0.125 100 ML ONE (08:48)
--- NOTE | 2019-02-02 08:50 | NUR ---
Anesthesia called and notified of epidural request
[2019-02-02] MEDS ORDERED: BUPIVACAINE 0.25% 30 ML (SENSORCAINE) VIAL ONE (09:06)
[2019-02-02] MEDS ORDERED: fentaNYL INJECTION 100 MCG/2 ML AMP ONE (09:06)
--- NOTE | 2019-02-02 09:15 | NUR ---
Anders Gonzalez CRNA and DIANNE Bangura here for epidural placement. Procedure explained, consent reviewed and signed by anesthesia. Questions answered to patient's satisfaction. Time out taken to verify correct patient/procedure. Patient up to side of bed, assisted into sitting position. Betadine prep done x3 and sterile drape applied. Local done, see anesthesia record. Test dose given, see anesthesia record for drug and dosage. Epidural catheter secured in place. Epidural placement complete. Assisted back into bed, monitors adjusted. Epidural dosed, see anesthesia record. Epidural of Sufenta/Bupvicaine @12_cc/hr stated per pump. Patient tolerated procedure well.
[2019-02-02] MEDS ORDERED: LACTATED RINGERS 1,000 ML IV ONE (09:43)
[2019-02-02] MEDS ORDERED: NALOXONE 0.4 MG/ML 1 ML (NARCAN) VIAL IV PRN (09:45)
[2019-02-02] MEDS ORDERED: CATHETER FLUSH 10 ML SYR IV PRN (09:45)
[2019-02-02] MEDS ORDERED: EPIDURAL (SUFENTA 0.6MCG/ML BUPIVA 0.125%) 100 ML BAG EPI SCH (09:45)
[2019-02-02] MEDS ORDERED: OXYTOCIN/NORMAL SALINE 500 ML IV SCH (10:34)
[2019-02-02] MEDS ORDERED: LIDOCAINE/EPI 2% 1:200,00 (XYLOCAINE) 10 ML VIAL ONE (12:36)
[2019-02-02] MEDS ORDERED: CATHETER FLUSH 10 ML SYR IV SCH (14:00)
[2019-02-02] MEDS ORDERED: TETANUS,DIPTH,PERTUSS P/F (BOOSTRIX) 0.5 ML VIAL IM ONE (14:30)
[2019-02-02] MEDS ORDERED: MEASLES,MUMPS,RUBELLA 1 EA INJ SQ ONE (14:30)
[2019-02-02] MEDS ORDERED: DIBUCAINE (NUPERCAINAL) 1% OINT 30 GM TOP PRN (14:30)
[2019-02-02] MEDS ORDERED: BENZOCAINE/MENTHOL (DERMOPLAST) 56 ML CAN TP PRN (14:30)
--- NOTE | 2019-02-02 14:32 | OB Labor & Delivery Record ---
L&D History Date of Service Date of Service: Feb 02, 2019 History Expected Date of Delivery: Feb 09, 2019 Gestational Age in Weeks: 39 Hx : 1 Hx Para: 0 Complications Events: Routine care Operative Indications (Cesarea: N/A-Vaginal Delivery Intrapartal Events: None L&D Stage1 Stage One Onset of Labor - Date: Feb 02, 2019 Monitors and Tracing Monitor Mode: External Heart Rate: 140 Station: -2 Vital Signs VS - Last 72 Hours, by Label 02/02/19 02/02/19 02/02/19 02/02/19 08:45 09:10 09:25 09:30 Pulse 93 81 90 83 Resp 20 20 20 20 B/P (MAP) 135/86 (102) 132/80 (97) 147/86 (106) 146/84 (104) Pulse Ox 94 96 O2 Delivery Room Air Room Air 02/02/19 02/02/19 02/02/19 02/02/19 09:35 09:38 09:40 09:45 Temp 97.7 Pulse 90 90 85 86 Resp 20 20 20 20 B/P (MAP) 133/76 (95) 119/58 (78) 108/52 (70) 120/58 (78) Pulse Ox 98 98 96 96 O2 Delivery Room Air Room Air Room Air Room Air 02/02/19 02/02/19 02/02/19 02/02/19 09:45 09:50 09:52 09:55 Pulse 80 77 76 78 Resp 20 20 20 20 B/P (MAP) 114/55 (74) 108/59 (75) 114/62 (79) 121/63 (82) Pulse Ox 96 96 96 96 O2 Delivery Room Air Room Air Room Air Room Air 02/02/19 09:58 Pulse 72 Resp 20 B/P (MAP) 118/66 (83) Pulse Ox 96 O2 Delivery Room Air Rupture of Membranes Spontaneous Ruture of Membrane: Yes Amniotic Membrane Rupture Time: 0700 Amniotic Membrane Fluid Desc.: Clear Vaginal Bleeding Description: Normal Show Progress/Notes Pitocin augmentation started to max dose of 4 mu, after epidural was received. L&D Stage2 Stage Two Stage II Date: Feb 02, 2019 Monitors and Tracing Monitor Mode: External Heart Rate: 140 Monitor Accelerations: Uniform Monitor Decelerations: Variable Curriculum Assistant Principal Variability: Average (6-10) Short Term Variability: Present Position: Right Occiput Anterior Presentation: Vertex Signs of Distress by FHT Signs of Distress nuchal cord reduced x 1 Cord Descript/Complications Cord Vessel Description: 3 Vessels Delivery Type Delivery Method: Spontaneous Vaginal Anterior Shoulder: Right Episiotomy/Perineal Laceration Laceraction(s)/Extensions: Yes Episiotomy Description: Right Mediolateral Degree (describe repair) RML repaired using 3-0 and 2-0 vicryl suture in usual fashion Shoulder Dystocia Note Shoulder Dystocia HOB in lowered position: Yes Positional Maneuvers Uriel, Suprapubic: Left Slow progression of the head, and nuchal cord reduced, head of patient bed lowered and uriel position done, with some mild suprapubic pressure from left to right the anterior right shoulder was reduced from the pubic bone. Approximate time of the dystocia 30 secs. Condition of Infant Delivery 1 minute Comment: 5 5 minute Comment: 8 Notes Live male weight 8lbs 15 oz Condition of Condition of Infant: Living Exam: No Observed Abnormalities Resuscitation Resuscitation: Bag and Mask (PPV) L&D Stage3 Stage Three Stage III Date: Feb 02, 2019 Pictocin Pitocin Administration Comment: 30 mu wide open at delivery of placenta Placenta Delivery Placenta Delivery: Spontaneous Delivery Summary Summary Estimated blood loss (mL): 400 Attending at delivery: Heath Angelo DO Condition of Delivery Examined: Cervix Examined, Uterus Explored Post Hemorrhage: No Condition of Mother stable Condition of Infant (s) stable HEATH ANGELO DO Feb 02, 2019 2:32 pm
[2019-02-02] MEDS: OXYTOCIN/NORMAL SALINE 500 ML IV SCH ×2 (14:36→17:17)
--- NOTE | 2019-02-02 16:45 | NUR ---
RN to room to answer call light. Pt reports needing to void. FF1/U, light rubra lochia noted. Epidural catheter removed, tip intact. Bandaid applied to site. Fresh vpad and underwear on. Pt assisted to standing position at side of bed. Pt ambulates self to bathroom accompanied by RN without incident. +void. Pericare demonstrated. Tucks and Dermaplast provided. Fresh pad to perineum and fresh gown on. Pt assisted to wheelchair. Taken to room 309 via wheelchair accompanied by RN, S.O. and . Pt assisted back to bed. Pt and family oriented to room and call light. packet explained. Motrin given. Pt denies further needs or concerns at this time.
[2019-02-02] MEDS: WITCH HAZEL(TUCKS) 40 EA JAR TOP PRN (17:00)
[2019-02-02] MEDS: IBUPROFEN 600 MG (MOTRIN) TAB PO SCH ×2 (17:00→22:22)
[2019-02-02] MEDS: HYDROcodone/APAP 5 MG/325 MG (LORTAB) TAB PO PRN (17:27)
[2019-02-02] MEDS: DOCUSATE SODIUM 100 MG (COLACE) CAP PO SCH (20:21)
[2019-02-02] MEDS: CATHETER FLUSH 10 ML SYR IV SCH (20:22)
[2019-02-03] VITALS (8 sets, daily range): BP systolic 104–130; BP diastolic 58–83
[2019-02-03] MEDS: HYDROcodone/APAP 5 MG/325 MG (LORTAB) TAB PO PRN ×3 (00:26→17:46)
[2019-02-03] MEDS: IBUPROFEN 600 MG (MOTRIN) TAB PO SCH ×4 (04:28→21:05)
[2019-02-03] MEDS: PRENATAL VITAMIN 1 EA TAB PO SCH (06:38)
[2019-02-03 06:55] LABS: BASOPHILS % (AUTO) 0 % (0-10); EOSINOPHILS # (AUTO) 0.2 10^3/uL (0.0-0.3); EOSINOPHILS % (AUTO) 1 % (0-10); HEMATOCRIT 33 % (35-52); LYMPHOCYTES # (AUTO) 2.7 X 10^3 (1.0-4.0); LYMPHOCYTES % (AUTO) 26 % (12-44); MEAN CORPUSCULAR HEMOGLOBIN 32 PG (25-34); MEAN CORPUSCULAR HGB CONC 34 G/DL (32-36); MEAN CORPUSCULAR VOLUME 94 FL (80-99); MEAN PLATELET VOLUME 10.1 FL (7.4-10.4); MONOCYTES # (AUTO) 0.9 X 10^3 (0.0-1.0); MONOCYTES % (AUTO) 8 % (0-12); NEUTROPHILS # (AUTO) 6.7 X 10^3 (1.8-7.8); NEUTROPHILS % (AUTO) 64 % (42-75); PLATELET COUNT 180 10^3/uL (130-400); RED CELL DISTRIBUTION WIDTH 13.3 % (10.0-14.5); WHITE BLOOD COUNT 10.4 10^3/uL (4.3-11.0)
[2019-02-03] MEDS: CATHETER FLUSH 10 ML SYR IV SCH (06:56)
--- NOTE | 2019-02-03 08:08 | Postpartum Progress Note ---
Note Note Day # 1 Subjective: Patient is without complaints. Ambulating, voiding. Tolerating a regular diet without nausea or vomiting. Normal lochia. Pain is well controlled with oral pain medications. Objective: Physical Exam: General - Alert and oriented, no apparent distress Abdomen - Soft, appropriately tender to palpation, non-distended, fundus firm at umbilicus Extremities - no edema, negative Victor Manuel's bilaterally Assessment: PPD 1 NVD Acute blood loss anemia Plan: Routine care. Encourage breast feeding. Encourage ambulation. Ferrous sulfate supplementation. Plan for discharge tomorrow, or later today pending infant release Vitals - Labs Vital Signs - I&O Vital Signs Date Time Temp Pulse Resp B/P (MAP) Pulse Ox O2 Delivery O2 Flow Rate FiO2 02/03/19 04:00 97.9 76 16 113/64 (80) 95 Room Air 02/03/19 00:00 98.3 80 18 113/58 (76) 95 Room Air 02/02/19 21:00 95 Room Air 02/02/19 20:00 98.4 96 18 108/55 (72) 95 Room Air 02/02/19 16:29 88 20 124/58 (80) Room Air 02/02/19 16:14 91 20 133/65 (87) Room Air 02/02/19 15:44 84 20 117/58 (77) Room Air 02/02/19 15:29 93 20 130/58 (82) Room Air 02/02/19 15:14 97 20 130/61 (84) Room Air 02/02/19 14:59 84 20 131/59 (83) Room Air 02/02/19 14:44 95 20 133/60 (84) Room Air 02/02/19 14:29 105 20 143/83 (103) Room Air 02/02/19 14:15 98.8 96 20 139/66 (90) Room Air 02/02/19 13:45 127 20 138/60 (86) Room Air 02/02/19 13:30 127 20 122/58 (79) Room Air 02/02/19 13:15 93 20 125/82 (96) Room Air 02/02/19 13:00 77 20 117/77 (90) Room Air 02/02/19 12:45 75 20 124/74 (91) Room Air 02/02/19 12:30 77 20 134/82 (99) Room Air 02/02/19 12:15 97.4 74 20 130/75 (93) Room Air 02/02/19 12:00 69 20 90/53 (65) Room Air 02/02/19 11:45 75 20 94/53 (67) Room Air 02/02/19 11:30 69 20 101/58 (72) Room Air 02/02/19 11:15 74 20 120/69 (86) Room Air 02/02/19 11:00 74 20 135/65 (88) Room Air 02/02/19 10:40 97.4 78 20 123/65 (84) 95 Room Air 02/02/19 10:38 80 20 123/64 (83) 96 Room Air 02/02/19 10:30 77 20 118/69 (85) 94 Room Air 02/02/19 10:25 80 20 121/69 (86) 96 Room Air 02/02/19 10:20 77 20 126/63 (84) 95 Room Air 02/02/19 10:17 81 20 139/63 (88) 96 Room Air 02/02/19 10:10 80 20 118/65 (82) 95 Room Air 02/02/19 10:08 77 20 119/70 (86) 96 Room Air 02/02/19 10:02 82 20 118/67 (84) 96 Room Air 02/02/19 09:58 72 20 118/66 (83) 96 Room Air 02/02/19 09:55 78 20 121/63 (82) 96 Room Air 02/02/19 09:52 76 20 114/62 (79) 96 Room Air 02/02/19 09:50 77 20 108/59 (75) 96 Room Air 02/02/19 09:45 80 20 114/55 (74) 96 Room Air 02/02/19 09:45 86 20 120/58 (78) 96 Room Air 02/02/19 09:40 97.7 85 20 108/52 (70) 96 Room Air 02/02/19 09:38 90 20 119/58 (78) 98 Room Air 02/02/19 09:35 90 20 133/76 (95) 98 Room Air 02/02/19 09:30 83 20 146/84 (104) 96 Room Air 02/02/19 09:25 90 20 147/86 (106) 94 Room Air 02/02/19 09:10 81 20 132/80 (97) 02/02/19 08:45 93 20 135/86 (102) I & O 02/03/19 07:00 Intake Total 3700 ml Balance 3700 ml Labs Laboratory Tests 02/02/19 08:23: White Blood Count 10.0, Red Blood Count 4.33L, Hemoglobin 13.5, Hematocrit 39, Mean Corpuscular Volume 91, Mean Corpuscular Hemoglobin 31, Mean Corpuscular Hemoglobin Concent 34, Red Cell Distribution Width 13.3, Platelet Count 232, Mean Platelet Volume 9.8, Neutrophils (%) (Auto) 72, Lymphocytes (%) (Auto) 18, Monocytes (%) (Auto) 8, Eosinophils (%) (Auto) 2, Basophils (%) (Auto) 0, Neutrophils # (Auto) 7.2, Lymphocytes # (Auto) 1.8, Monocytes # (Auto) 0.8, Eosinophils # (Auto) 0.2, Basophils # (Auto) 0.0 02/03/19 06:07: White Blood Count 10.4, Red Blood Count 3.46L, Hemoglobin 11.0L, Hematocrit 33L, Mean Corpuscular Volume 94, Mean Corpuscular Hemoglobin 32, Mean Corpuscular Hemoglobin Concent 34, Red Cell Distribution Width 13.3, Platelet Count 180, Mean Platelet Volume 10.1, Neutrophils (%) (Auto) 64, Lymphocytes (%) (Auto) 26, Monocytes (%) (Auto) 8, Eosinophils (%) (Auto) 1, Basophils (%) (Auto) 0, Neutrophils # (Auto) 6.7, Lymphocytes # (Auto) 2.7, Monocytes # (Auto) 0.9, Eosinophils # (Auto) 0.2, Basophils # (Auto) 0.0 HEATH ANGELO DO Feb 03, 2019 08:08
--- NOTE | 2019-02-03 08:09 | Discharge Inst-Women's Service ---
Discharge Inst-Women's Serv Depart Medication/Instructions New, Converted or Re-Newed RX: RX on Chart Final Diagnosis PPD 1 NVD Problems Reviewed?: Yes Consults/Follow Up Additional Follow Up: Yes Orders/Referrals Dr. Angelo in 6 weeks Activity Activity: Activity as Tolerated Driving Instructions: No Driving for 1 Week NO SMOKING: NO SMOKING Nothing Inside Vagina: No Douching, No [place], No Tampons Diet Discharge Diet: No Restrictions Symptoms to Report to : Bleeding Excessive, Pain Increased, Fever Over 101 Degrees F, Vaginal Bleeding Increase, Questions/Concerns For Any Problems or Questions: Contact Your Physician HEATH ANGELO DO Feb 03, 2019 08:09
[2019-02-03] MEDS ORDERED: Benzocaine/Menthol TP (08:11)
[2019-02-03] MEDS ORDERED: DOCU100C37 PO (08:11)
[2019-02-03] MEDS ORDERED: IBUP-844 PO (08:11)
[2019-02-03] MEDS ORDERED: ACHD5005 PO (08:11)
[2019-02-03] MEDS ORDERED: DIBU30OI TOP (08:11)
--- NOTE | 2019-02-03 08:46 | Anesthesia-Regional Post-Op ---
Regional Patient Condition Mental Status: Alert, Oriented x3 Circulation: Same as Pre-Op Headache: Absent Sensation: Full Recovery Motor Block: Absent Post Op Complications Complications None Follow Up Care/Instructions Patient Instructions None needed. Anesthesia/Patient Condition Patient is doing well, no complaints, stable vital signs, no apparent adverse anesthesia problems. No complications reported per nursing. LOUANN BOB CRNA Feb 03, 2019 08:46
--- NOTE | 2019-02-03 09:10 | NUR ---
initial shift assessment completed, see interventions for further. and infant @ side. appropriate bonding noted.
[2019-02-03] MEDS: FERROUS SULF 325 MG (IRON) TAB PO SCH (10:06)
[2019-02-03] MEDS: DOCUSATE SODIUM 100 MG (COLACE) CAP PO SCH ×2 (10:07→21:05)
--- NOTE | 2019-02-03 14:17 | NUR ---
Report given to Vibha Burton RN, Patient laying in bed with s/o and infant. no c/o pain or discomfort at this time, call light and personal belongings within reach. bed in low position. no concerns at this time.
--- NOTE | 2019-02-03 15:30 | NUR ---
pt c/o feeling dizzy with ambulation and weak. vs taken, stable. pt unable to sleep r/t visitors @ bedside. lights out. encourage resting. update given to Dr. Patrick. Benadryl 50mg p.o. x1 order received.
--- NOTE | 2019-02-03 19:00 | NUR ---
report given to next shift.
[2019-02-03] MEDS: WITCH HAZEL(TUCKS) 40 EA JAR TOP PRN (23:36)
[2019-02-04 02:34] VITALS: BP 104/68
[2019-02-04] MEDS: IBUPROFEN 600 MG (MOTRIN) TAB PO SCH ×3 (02:34→14:25)
[2019-02-04] MEDS: HYDROcodone/APAP 5 MG/325 MG (LORTAB) TAB PO PRN ×2 (03:52→16:50)
--- NOTE | 2019-02-04 07:24 | Postpartum Progress Note ---
Note Note Day # 2 Subjective: Patient is without complaints. Ambulating, voiding. Tolerating a regular diet without nausea or vomiting. Normal lochia. Pain is well controlled with oral pain medications. Objective: Physical Exam: General - Alert and oriented, no apparent distress Abdomen - Soft, appropriately tender to palpation, non-distended, fundus firm at umbilicus Extremities - no edema, negative Victor Manuel's bilaterally Assessment: PPD 2 NVD Acute blood loss anemia Plan: Routine care. Encourage breast feeding. Encourage ambulation. Ferrous sulfate supplementation. Plan for discharge today Vitals - Labs Vital Signs - I&O Vital Signs Date Time Temp Pulse Resp B/P (MAP) Pulse Ox O2 Delivery O2 Flow Rate FiO2 02/04/19 02:34 98.0 95 18 104/68 (80) 98 Room Air 02/03/19 21:05 98.1 99 18 104/60 (75) 95 Room Air 02/03/19 15:30 97.9 93 18 114/74 (87) 97 Room Air 02/03/19 12:27 98.1 88 18 116/74 (88) 97 Room Air 02/03/19 09:58 97.6 97 18 109/63 (78) 97 Room Air 02/03/19 09:30 98.2 84 18 130/83 (99) 96 Room Air 02/03/19 09:30 96 Room Air 02/03/19 09:10 98.2 84 18 130/83 (99) 96 Room Air HEATH ANGELO DO Feb 04, 2019 07:24
[2019-02-04] MEDS: PRENATAL VITAMIN 1 EA TAB PO SCH (08:21)
[2019-02-04] MEDS: FERROUS SULF 325 MG (IRON) TAB PO SCH (08:21)
[2019-02-04] MEDS: DOCUSATE SODIUM 100 MG (COLACE) CAP PO SCH (08:21)
--- NOTE | 2019-02-04 08:23 | NUR ---
Dr Patrick to see patient.
[2019-02-04 08:36] VITALS: BP 118/57
[2019-02-04] MEDS ORDERED: TETANUS,DIPTH,PERTUSS P/F (BOOSTRIX) 0.5 ML VIAL IM ONE (10:04)
--- NOTE | 2019-02-04 10:45 | NUR ---
Discharge instructions explained, signed and copy to patient. pt verbalized understanding of instructions and denied questions. prescriptions given to pt.
[2019-02-04 12:00] VITALS: BP 104/58
--- NOTE | 2019-02-04 16:55 | NUR ---
Pt discharged to room in parent at this time.
== END 2019-02-04 16:55 | disposition home or self-care (01) | DRG 806 ==
LOC: LDRP 07:54 → WSo 07:54 → LDRP 08:38 → WSo 08:39 → LDRP 17:00
PROVIDERS: ADMIT Obstetrics & Gynecology; ATTEND Obstetrics & Gynecology
PROC: 10E0XZZ Delivery of Products of Conception, External Approach (ICD-10-PCS; principal; 2019-02-02)
PROC: 0W8NXZZ Division of Female Perineum, External Approach (ICD-10-PCS; 2019-02-02)
DX: O10.02 Pre-existing essential hypertension complicating childbirth (principal); O90.81 Anemia of the puerperium; D62 Acute posthemorrhagic anemia; O66.0 Obstructed labor due to shoulder dystocia; O69.81X0 Labor and delivery complicated by cord around neck, without compression, not applicable or unspecified; O99.344 Other mental disorders complicating childbirth; F32.9 Major depressive disorder, single episode, unspecified; F41.9 Anxiety disorder, unspecified; O99.613 Diseases of the digestive system complicating pregnancy, third trimester; K58.9 Irritable bowel syndrome, unspecified; Z3A.39 39 weeks gestation of pregnancy; Z37.0 Single live birth; Z23 Encounter for immunization
CPT/HCPCS: 36415; 85025; 86850; 86900; 86901; 88307; 90715; 99212

== ENCOUNTER 2019-09-24 03:00 | Emergency (ER) | payer OTHER ==
[~2019-09-24] VITALS: Ht 160 cm; Wt 86.0 kg
[~2019-09-24 03:00] MED LIST changes: +Benzocaine/Menthol TP; +DIBU30OI TOP; +DOCU100C37 PO; +IBUP-844 PO
[2019-09-24 03:08] VITALS: BP 111/81
--- NOTE | 2019-09-24 03:10 | NUR ---
eye acuity checked with glasses on.
--- OUTSIDE RECORDS SUMMARY | 2019-09-24 03:10 | XMS REPORT | Continuity of Care Document ---
Author Organization Unknown Address Unknown Phone Unavailable Allergies Active Description Code Type Severity Reaction Onset Reported/Identified Relationship to Patient Clinical Status Yes Penicillins [id number] Drug Aller gy Unknown PT TOLERATED AM 12/16/2013 Medications There is no data. Problems Date Dx Coded Attending Type Code Diagnosis Diagnosed By 12/16/2013 PAUL MENA DO Ot 575.11 CHRONIC CHOLECYSTITIS 12/31/2016 PAUL MENA DO Ot 780.60 FEVER, UNSPECIFIED 12/31/2016 PAUL MENA DO Ot 789.03 ABDOMINAL PAIN, RIGHT LOWER QUADRANT 12/31/2016 PAUL MENA DO Ot 789.03 ABDOMINAL PAIN, RIGHT LOWER QUADRANT 12/31/2016 PAUL MENA DO Ot 789.01 ABDOMINAL PAIN, RIGHT UPPER QUADRANT 12/31/2016 TRACI MENA Ot 575.8 DIS OF GALLBLADDER NEC 12/31/2016 TRACI MENA Ot 789.00 ABDOMINAL PAIN, UNSPECIFIED SITE 01/21/2017 ADRIAN BERNARDO, THALIA Ot Z02.0 ENCOUNTER FOR EXAM FOR ADMISSION TO EDUC 01/21/2017 THALIA CAMPBELL MD Ot Z11.1 ENCOUNTER FOR SCREENING FOR RESPIRATORY 03/18/2017 THALIA CAMPBELL MD Ot E22.1 HYPERPROLACTINEMIA 03/18/2017 THALIA CAMPBELL MD Ot F33.9 MAJOR DEPRESSIVE DISORDER, RECURRENT, UN 03/18/2017 THALIA CAMPBELL MD Ot R03.0 ELEVATED BLOOD-PRESSURE READING, W/O KARON 03/25/2017 THALIA CAMPBELL MD Ot E22.1 HYPERPROLACTINEMIA 03/25/2017 THALIA CAMPBELL MD Ot F33.9 MAJOR DEPRESSIVE DISORDER, RECURRENT, UN 03/25/2017 THALIA CAMPBELL MD Ot R03.0 ELEVATED BLOOD-PRESSURE READING, W/O KARON 08/13/2017 KHARI STILES MD Ot F32. 9 MAJOR DEPRESSIVE DISORDER, SINGLE EPISOD 08/13/2017 KHARI STILES MD Ot G43.909 MIGRAINE, UNSP, NOT INTRACTABLE, WITHOUT 08/13/2017 KHARI STILES MD Ot R20. 2 PARESTHESIA OF SKIN 08/13/2017 KHARI STILES MD Ot R47. 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 39 PERSONAL HISTORY OF ENDO, NUTRITIONAL AN 08/13/2017 KHARI STILES MD Ot Z88. 0 ALLERGY STATUS TO PENICILLIN 08/14/2017 DEANNA CAMPBELL MD-IVANA Ot Z02.0 ENCOUNTER FOR EXAM FOR ADMISSION TO EDUC 08/14/2017 THALIA CAMPBELL MD Ot Z11.1 ENCOUNTER FOR SCREENING FOR RESPIRATORY 08/14/2017 THALIA CAMPBELL MD Ot E22.1 HYPERPROLACTINEMIA 08/14/2017 DEANNA CAMPBELL MD-IVANA Ot F33.9 MAJOR DEPRESSIVE DISORDER, RECURRENT, UN 08/14/2017 DEANNA CAMPBELL MD-IVANA Ot R03.0 ELEVATED BLOOD-PRESSURE READING, W/O KARON 08/17/2017 KHARI STILES MD Ot F32. 9 MAJOR DEPRESSIVE DISORDER, SINGLE EPISOD 08/17/2017 KHARI STILES MD Ot G43.909 MIGRAINE, UNSP, NOT INTRACTABLE, WITHOUT 08/17/2017 KHARI STILES MD Ot R20. 2 PARESTHESIA OF SKIN 08/17/2017 KHARI STILES MD Ot R47. 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 39 PERSONAL HISTORY OF ENDO, NUTRITIONAL AN 08/17/2017 KHARI STILES MD Ot F32. 9 MAJOR DEPRESSIVE DISORDER, SINGLE EPISOD 08/17/2017 KHARI STILES MD Ot G43.909 MIGRAINE, UNSP, NOT INTRACTABLE, WITHOUT 08/17/2017 KHARI STILES MD Ot R20. 2 PARESTHESIA OF SKIN 08/17/2017 KHARI STILES MD Ot R47. 81 SLURRED SPEECH 08/17/2017 LINSEY BERNARDO, KHARI Simms Ot Z79. 84 RETIREMENT (CURRENT) USE OF ORAL HYPOGLYC 08/17/2017 LINSEY BERNARDO, KHARI Simms Ot Z86. 39 PERSONAL HISTORY OF ENDO, NUTRITIONAL AN 08/17/2017 LINSEY BERNARDO, KHARI Simms Ot Z88. 0 ALLERGY STATUS TO PENICILLIN 06/08/2018 ADRIAN BERNARDO, DEANNA-IVANA Ot N91.2 AMENORRHEA, UNSPECIFIED 06/08/2018 ADRIAN BERNARDO, DEANNA-IVANA Ot Z32.0 1 ENCOUNTER FOR TEST, RESULT POS 09/16/2018 ADRIAN BERNARDO, DEANNA-IVANA Ot N91.2 AMENORRHEA, UNSPECIFIED 09/16/2018 ADRIAN BERNARDO, DEANNA-IVANA Ot Z32.0 1 ENCOUNTER FOR TEST, RESULT POS 09/24/2018 ADRIAN BERNARDO, DEANNA-IVANA Ot Z02.0 ENCOUNTER FOR EXAM FOR ADMISSION TO EDUC 09/24/2018 ADRIAN BERNARDO, DEANNA-IVANA Ot Z11.1 ENCOUNTER FOR SCREENING FOR RESPIRATORY 09/24/2018 ADRIAN BERNARDO, DEANAN-IVANA Ot E22.1 HYPERPROLACTINEMIA 09/24/2018 ADRIAN BERNARDO, DEANNA-IVANA Ot F33.9 MAJOR DEPRESSIVE DISORDER, RECURRENT, UN 09/24/2018 ADRIAN BERNARDO, DEANNA-IVANA Ot R03.0 ELEVATED BLOOD-PRESSURE READING, W/O KARON 09/24/2018 ADRIAN BERNARDO, DEANNA-IVANA Ot N91.2 AMENORRHEA, UNSPECIFIED 09/24/2018 ADRIAN BERNARDO, DEANNA-IVANA Ot Z32.0 1 ENCOUNTER FOR TEST, RESULT POS 09/26/2018 HEATH ANGELO DO Ot Z36.89 ENCOUNTER FOR OTHER SPECIFIED 09/26/2018 HEATH ANGELO DO Ot Z3A.21 21 WEEKS GESTATION OF 10/15/2018 HEATH ANGELO DO Ot N89.8 OTHER SPECIFIED NONINFLAMMATORY DISORDER 10/15/2018 HEATH ANGELO DO Ot O21.2 LATE VOMITING OF 10/15/2018 HEATH ANGELO DO Ot O26.892 OTH RELATED CONDITIONS, SECOND 10/15/2018 HEATH ANGELO DO Ot Z3A.24 24 WEEKS GESTATION OF 10/20/2018 HEATH ANGELO DO Ot N89.8 OTHER SPECIFIED NONINFLAMMATORY DISORDER 10/20/2018 HEATH ANGELO DO Ot O21.2 LATE VOMITING OF 10/20/2018 HEATH ANGELO DO Ot O26.892 OTH RELATED CONDITIONS, SECOND 10/20/2018 HEATH ANGELO DO Ot Z3A.24 24 WEEKS GESTATION OF 11/07/2018 ADRIAN BERNARDO, THALIA Ot Z02.0 ENCOUNTER FOR EXAM FOR ADMISSION TO EDUC 11/07/2018 THALIA CAMPBELL MD Ot Z11.1 ENCOUNTER FOR SCREENING FOR RESPIRATORY 11/07/2018 THALIA CAMPBELL MD Ot E22.1 HYPERPROLACTINEMIA 11/07/2018 THALIA CAMPBELL MD Ot F33.9 MAJOR DEPRESSIVE DISORDER, RECURRENT, UN 11/07/2018 THALIA CAMPBELL MD Ot R03.0 ELEVATED BLOOD-PRESSURE READING, W/O KARON 11/07/2018 THALIA CAMPBELL MD Ot N91.2 AMENORRHEA, UNSPECIFIED 11/07/2018 THALIA CAMPBELL MD Ot Z32.0 1 ENCOUNTER FOR TEST, RESULT POS 11/07/2018 PETEY DOTY HEATH Sanders Ot Z36.89 ENCOUNTER FOR OTHER SPECIFIED 11/07/2018 HEATH ANGELO DO Ot Z3A.21 21 WEEKS GESTATION OF 11/07/2018 SERGIO DOUGHERTY DO Ot O21.2 LATE VOMITING OF 11/07/2018 SERGIO DOUGHERTY DO Ot Z3A.2 6 26 WEEKS GESTATION OF 11/09/2018 SERGIO DOUGHERTY DO Ot O21.2 LATE VOMITING OF 11/09/2018 SERGIO DOUGHERTY DO Ot Z3A.2 6 26 WEEKS GESTATION OF 11/11/2018 PETEY DOTY HEATH Tommy Ot Z36.89 ENCOUNTER FOR OTHER SPECIFIED 11/11/2018 PETEY DOTY HEATH S Ot Z3A.21 21 WEEKS GESTATION OF 11/11/2018 THALIA CAMPBELL MD Ot Z02.0 ENCOUNTER FOR EXAM FOR ADMISSION TO EDUC 11/11/2018 THALIA CAMPBELL MD Ot Z11.1 ENCOUNTER FOR SCREENING FOR RESPIRATORY 11/11/2018 THALIA CAMPBELL MD Ot E22.1 HYPERPROLACTINEMIA 11/11/2018 CAMPBELL MD, DEANNA-IVANA Ot F33.9 MAJOR DEPRESSIVE DISORDER, RECURRENT, UN 11/11/2018 ADRIAN BERNARDO, DEANNA-IVANA Ot R03.0 ELEVATED BLOOD-PRESSURE READING, W/O KARON 11/11/2018 ADRIAN BERNARDO, DEANNA-IVANA Ot N91.2 AMENORRHEA, UNSPECIFIED 11/11/2018 ADRIAN BERNARDO, DEANNA-IVANA Ot Z32.0 1 ENCOUNTER FOR TEST, RESULT POS 11/11/2018 FENECH DO, HEATH S Ot Z36.89 ENCOUNTER FOR OTHER SPECIFIED 11/11/2018 FENECH DO, HEATH S Ot Z3A.21 21 WEEKS GESTATION OF 02/02/2019 ADRIAN BERNARDO, DEANNA-IVANA Ot Z02.0 ENCOUNTER FOR EXAM FOR ADMISSION TO EDUC 02/02/2019 ADRIAN BERNARDO, DEANNA-IVANA Ot Z11.1 ENCOUNTER FOR SCREENING FOR RESPIRATORY 02/02/2019 ADRIAN BERNARDO, DEANNA-IVANA Ot E22.1 HYPERPROLACTINEMIA 02/02/2019 ADRIAN BERNARDO, DEANNA-IVANA Ot F33.9 MAJOR DEPRESSIVE DISORDER, RECURRENT, UN 02/02/2019 ADRIAN BERNARDO, DEANNA-IVANA Ot R03.0 ELEVATED BLOOD-PRESSURE READING, W/O KARON 02/02/2019 ADRIAN BERNARDO, DEANNA-IVANA Ot N91.2 AMENORRHEA, UNSPECIFIED 02/02/2019 ADRIAN BERNARDO, DEANNA-IVANA Ot Z32.0 1 ENCOUNTER FOR TEST, RESULT POS 02/02/2019 FENECH DO, HEATH S Ot Z36.89 ENCOUNTER FOR OTHER SPECIFIED 02/02/2019 FENECH DO, HEATH S Ot Z3A.21 21 WEEKS GESTATION OF 02/02/2019 ADRIAN BERNARDO DEANNA-IVANA Ot Z02.0 ENCOUNTER FOR EXAM FOR ADMISSION TO EDUC 02/02/2019 ADRIAN BERNARDO, DEANNA-IVANA Ot Z11.1 ENCOUNTER FOR SCREENING FOR RESPIRATORY 02/02/2019 ADRIAN BERNARDO, DEANNA-IVANA Ot E22.1 HYPERPROLACTINEMIA 02/02/2019 ADRIAN BERNARDO, DEANNA-IVANA Ot F33.9 MAJOR DEPRESSIVE DISORDER, RECURRENT, UN 02/02/2019 ADRIAN BERNARDO, DEANNA-IVANA Ot R03.0 ELEVATED BLOOD-PRESSURE READING, W/O KARON 02/02/2019 ADRIAN BERNARDO, DEANNA-IVANA Ot N91.2 AMENORRHEA, UNSPECIFIED 02/02/2019 ADRIAN BERNARDO, DEANNA-IVANA Ot Z32.0 1 ENCOUNTER FOR TEST, RESULT POS 02/02/2019 PETEY DOTYHEATH Ot Z36.89 ENCOUNTER FOR OTHER SPECIFIED 02/02/2019 PETEY DOTYHEATH Ot Z3A.21 21 WEEKS GESTATION OF 02/04/2019 PETEY DOTY, HEATH Sanders Ot D6 2 ACUTE POSTHEMORRHAGIC ANEMIA 02/04/2019 PETEY DOTYHEATH Ot F32.9 MAJOR DEPRESSIVE DISORDER, SINGLE EPISOD 02/04/2019 PETEY DOTYHEATH Ot F41.9 ANXIETY DISORDER, UNSPECIFIED 02/04/2019 PETEY DOTY, HEATH Sanders Ot K58.9 IRRITABLE BOWEL SYNDROME WITHOUT DIARRHE 02/04/2019 PETEY DOTYHEATH Ot O10.02 PRE-EXISTING ESSENTIAL HYPERTENSION COMP 02/04/2019 PETEY DOTYHEATH Ot O66.0 OBSTRUCTED LABOR DUE TO SHOULDER DYSTOCI 02/04/2019 PETEY DOTY, HEATH Sanders Ot O69.81X0 LABOR AND DEL COMP BY CORD AROUND NECK, 02/04/2019 PETEY DOTYHEATH Ot O90.81 ANEMIA OF THE PUERPERIUM 02/04/2019 PETEY DOTYHEATH Ot O99.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 OTHER MENTAL DISORDERS COMPLICATING CHIL 02/04/2019 PETEY DOTYHEATH Ot O99.613 DISEASES OF THE DGSTV SYS COMP 02/04/2019 PETEY DOTY, HEATH Sanders Ot Z2 3 ENCOUNTER FOR IMMUNIZATION 02/04/2019 PETEY DOTY, HEATH Sanders Ot Z37.0 SINGLE LIVE 02/04/2019 PETEY DOTYHEATH Ot Z3A.39 39 WEEKS GESTATION OF 02/23/2019 ADRIAN BERNARDO, THALIA Ot Z02.0 ENCOUNTER FOR EXAM FOR ADMISSION TO EDUC 02/23/2019 ADRIAN BERNARDO, THALIA Ot Z11.1 ENCOUNTER FOR SCREENING FOR RESPIRATORY 02/23/2019 ADRIAN BERNARDO, THALIA Ot E22.1 HYPERPROLACTINEMIA 02/23/2019 ADRIAN BERNARDO, THALIA Ot F33.9 MAJOR DEPRESSIVE DISORDER, RECURRENT, UN 02/23/2019 ADRIAN BERNARDO, THALIA Ot R03.0 ELEVATED BLOOD-PRESSURE READING, W/O KARON 02/23/2019 ADRIAN BERNARDO, THALIA Ot N91.2 AMENORRHEA, UNSPECIFIED 02/23/2019 ADRIAN BERNARDO, DEANNA-IVANA Ot Z32.0 1 ENCOUNTER FOR TEST, RESULT POS 02/23/2019 FENECH DO, HEATH S Ot Z36.89 ENCOUNTER FOR OTHER SPECIFIED 02/23/2019 FENECH DO, HEATH S Ot Z3A.21 21 WEEKS GESTATION OF 05/11/2019 ADRIAN BERNARDO, THALIA Ot Z02.0 ENCOUNTER FOR EXAM FOR ADMISSION TO EDUC 05/11/2019 ADRIAN BERNARDO, THALIA Ot Z11.1 ENCOUNTER FOR SCREENING FOR RESPIRATORY 05/11/2019 ADRIAN BERNARDO, DEANNA-IVANA Ot E22.1 HYPERPROLACTINEMIA 05/11/2019 ADRIAN BERNARDO, DEANNA-IVANA Ot F33.9 MAJOR DEPRESSIVE DISORDER, RECURRENT, UN 05/11/2019 ADRIAN BERNARDO, DEANNA-IVANA Ot R03.0 ELEVATED BLOOD-PRESSURE READING, W/O KARON 05/11/2019 ADRIAN BERNARDO, DEANNA-IVANA Ot N91.2 AMENORRHEA, UNSPECIFIED 05/11/2019 ADRIAN BERNARDO, DEANNA-IVANA Ot Z32.0 1 ENCOUNTER FOR TEST, RESULT POS 05/11/2019 FENECH DO, HEATH S Ot Z36.89 ENCOUNTER FOR OTHER SPECIFIED 05/11/2019 FENECH DO, HEATH S Ot Z3A.21 21 WEEKS GESTATION OF 05/11/2019 THALIA CAMPBELL MD Ot Z02.0 ENCOUNTER FOR EXAM FOR ADMISSION TO EDUC 05/11/2019 ADRIAN BERNARDO, THALIA Ot Z11.1 ENCOUNTER FOR SCREENING FOR RESPIRATORY 05/11/2019 ADRIAN BERNARDO, DEANNA-IVANA Ot E22.1 HYPERPROLACTINEMIA 05/11/2019 ADRIAN BERNARDO, DEANNA-IVANA Ot F33.9 MAJOR DEPRESSIVE DISORDER, RECURRENT, UN 05/11/2019 ADRIAN BERNARDO, DEANNA-IVANA Ot R03.0 ELEVATED BLOOD-PRESSURE READING, W/O KARON 05/11/2019 ADRIAN BERNARDO, DEANNA-IVANA Ot N91.2 AMENORRHEA, UNSPECIFIED 05/11/2019 ADRIAN BERNARDO, DEANNA-IVANA Ot Z32.0 1 ENCOUNTER FOR TEST, RESULT POS 05/11/2019 FENECH DO, HEATH S Ot Z36.89 ENCOUNTER FOR OTHER SPECIFIED 05/11/2019 FENECH DO, HEATH S Ot Z3A.21 21 WEEKS GESTATION OF Procedures Code Description Performed By [place] [id number] VISION OF FEMALE PERINEUM, EXTERNAL AP 02/02/2019 [id number] DE LIVERY OF PRODUCTS OF CONCEPTION, EXTE 02/02/2019 Results Test Result Range QUANTIFERON-TB GOLD - 12/31/16 17:00 QuantiFERON-TB test Negative Negative Mitogen stimulated gamma interferon [uni ts/volume] corrected for background in blood 0.07 [iU]/mL 0.00-7.99 Mitogen stimulated gamma interferon [units/volume] in blood 8.90 [iU]/mL 0.50-10.00 Qualitative QuantiFERON-TB gold in tube test <0.00 0.00- 0.34 Automated blood complete blood count (he mogram) panel - 03/12/17 12:06 Blood leukocytes automated count (number/volume) 5.9 10*3/uL 4.3-11.0 Blood erythrocytes automated count (number/volume) 4.77 10*6/uL 4.35-5.85 Venous blood hemoglobin measurement (mass/volume) 14.1 g/dL 11.5-16.0 Blood hematocrit (volume fraction) 41 % 35-52 Automated erythrocyte mean corpuscular volume 87 [ foz_us] 80-99 Automated erythrocyte mean corpuscular h emoglobin (mass per erythrocyte) 30 pg 25-34 Automated erythrocyte mean corpuscular h emoglobin concentration measurement (mass/volume) 34 g/dL 32-36 Automated erythrocyte distribution width ratio 12. 5 % 10.0- 14.5 Automated blood platelet count (count/volume) 295 10*3/uL 130-400 Automated blood platelet mean volume measurement 9.6 [foz_us] 7.4-10.4 Comprehensive metabolic panel - 03/12/17 12:06 Serum or plasma sodium measurement (moles/volume) 138 mmol/L 135-145 Serum or plasma potassium measurement (moles/volume) 4.2 mmol/L 3.6-5.0 Serum or plasma chloride measurement (moles/volume) 105 mmol/L 98-107 Carbon dioxide 25 mmol/L 21-32 Serum or plasma anion gap determination (moles/volume) 8 mmol/L 5-14 Serum or plasma urea nitrogen measurement (mass/volume ) 9 mg/dL 7-18 Serum or plasma creatinine measurement (mass/volume) 0.77 mg/dL 0.60-1.30 Serum or plasma urea nitrogen/creatinine mass ratio 12 NRG Serum or plasma creatinine measurement w ith calculation of estimated glomerular filtration rate > NRG Serum or plasma glucose measurement (mass/volume) 99 mg/dL 70-105 Serum or plasma calcium measurement (mass/volume) 9.2 mg/dL 8.5-10.1 Serum or plasma total bilirubin measurement (mass/volu me) 0.4 mg/dL 0.1-1.0 Serum or plasma alkaline phosphatase carine surement (enzymatic activity/volume) 81 U/L 40-136 Serum or plasma aspartate aminotransfera se measurement (enzymatic activity/volume) 21 U/L 5-34 Serum or plasma alanine aminotransferase measurement (enzymatic activity/volume) 14 U/L 0-55 Serum or plasma protein measurement (mass/volume) 7.0 g/dL 6.4-8.2 Serum or plasma albumin measurement (mass/volume) 3.9 g/dL 3.2-4.5 THYROID STIMULATING HORMONE - 03/12/17 1 2:06 THYROID STIMULATING HORMONE 2.36 u[iU]/mL 0.35-4.94 Serum or plasma prolactin measurement (m ass/volume) - 03/12/17 12:06 Serum or plasma prolactin measurement (mass/volume) 13.3 % NRG Complete blood count (CBC) with automate d white blood cell (WBC) differential - 08/13/17 14:55 Blood leukocytes automated count (number/volume) 5.1 10*3/uL 4.3-11.0 Blood erythrocytes automated count (number/volume) 4.91 10*6/uL 4.35-5.85 Venous blood hemoglobin measurement (mass/volume) 15.1 g/dL 11.5-16.0 Blood hematocrit (volume fraction) 42 % 35-52 Automated erythrocyte mean corpuscular volume 86 [ foz_us] 80-99 Automated erythrocyte mean corpuscular h emoglobin (mass per erythrocyte) 31 pg 25-34 Automated erythrocyte mean corpuscular h emoglobin concentration measurement (mass/volume) 36 g/dL 32-36 Automated erythrocyte distribution width ratio 12. 7 % 10.0- 14.5 Automated blood platelet count (count/volume) 279 10*3/uL 130-400 Automated blood platelet mean volume measurement 10.1 [foz_us] 7.4-10.4 Automated blood neutrophils/100 leukocytes 41 % 42-75 Automated blood lymphocytes/100 leukocytes 48 % 12-44 Blood monocytes/100 leukocytes 10 % 0-12 Automated blood eosinophils/100 leukocytes 1 % 0-10 Automated blood basophils/100 leukocytes 0 % 0-10 Blood neutrophils automated count (number/volume) 2.1 10*3 1.8-7.8 Blood lymphocytes automated count (number/volume) 2.4 10*3 1.0-4.0 Blood monocytes automated count (number/volume) 0. 5 10*3 0.0-1.0 Automated eosinophil count 0.0 10*3/uL 0 .0-0.3 Automated blood basophil count (count/volume) 0.0 10*3/uL 0.0-0.1 Comprehensive metabolic panel - 08/13/17 14:55 Serum or plasma sodium measurement (moles/volume) 137 mmol/L 135-145 Serum or plasma potassium measurement (moles/volume) 3.8 mmol/L 3.6-5.0 Serum or plasma chloride measurement (moles/volume) 101 mmol/L 98-107 Carbon dioxide 24 mmol/L 21-32 Serum or plasma anion gap determination (moles/volume) 12 mmol/L 5-14 Serum or plasma urea nitrogen measurement (mass/volume ) 11 mg/dL 7-18 Serum or plasma creatinine measurement (mass/volume) 0.88 mg/dL 0.60-1.30 Serum or plasma urea nitrogen/creatinine mass ratio 13 NRG Serum or plasma creatinine measurement w ith calculation of estimated glomerular filtration rate > NRG Serum or plasma glucose measurement (mass/volume) 103 mg/dL 70-105 Serum or plasma calcium measurement (mass/volume) 10.2 mg/dL 8.5-10.1 Serum or plasma total bilirubin measurement (mass/volu me) 0.5 mg/dL 0.1-1.0 Serum or plasma alkaline phosphatase carine surement (enzymatic activity/volume) 65 U/L 40-136 Serum or plasma aspartate aminotransfera se measurement (enzymatic activity/volume) 25 U/L 5-34 Serum or plasma alanine aminotransferase measurement (enzymatic activity/volume) 12 U/L 0-55 Serum or plasma protein measurement (mass/volume) 7.8 g/dL 6.4-8.2 Serum or plasma albumin measurement (mass/volume) 4.5 g/dL 3.2-4.5 Serum or plasma C reactive protein measu rement (mass/volume) - 08/13/17 14:55 Serum or plasma C reactive protein measurement (mass/v olume) 1.12 mg/dL 0.00-0.50 Serum or plasma troponin i.cardiac measu rement (mass/volume) - 08/13/17 14:55 Serum or plasma troponin i.cardiac measurement (mass/v olume) < ng/mL <0.30 Capillary blood glucose measurement by g lucometer (mass/volume) - 08/13/17 14:56 Capillary blood glucose measurement by glucometer (mas s/volume) 99 mg/dL 70-110 Complete urinalysis with reflex to cultu re - 08/13/17 15:22 Urine color determination YELLOW NRG Urine clarity determination CLEAR NR G Urine pH measurement by test strip 5 5-9 Specific gravity of urine by test strip 1.015 1.016-1.022 Urine protein assay by test strip, semi-quantitative NEGATIVE NEGATIVE Urine glucose detection by automated test strip NE GATIVE NEGATIVE Erythrocytes detection in urine sediment by light micr oscopy 5+ NEGATIVE Urine ketones detection by automated test strip 3+ NEGATIVE Urine nitrite detection by test strip NEGATIVE NEGATIVE Urine total bilirubin detection by test strip NEGA TIVE NEGATIVE Urine urobilinogen measurement by automated test strip (mass/volume) NORMAL NORMAL Urine leukocyte esterase detection by dipstick 2+ NEGATIVE Automated urine sediment erythrocyte cou nt by microscopy (number/high power field) NONE NRG Automated urine sediment leukocyte count by microscopy (number/high power field) [HPF] NRG Bacteria detection in urine sediment by light microsco py NEGATIVE NRG Squamous epithelial cells detection in u rine sediment by light microscopy 5-10 NRG Crystals detection in urine sediment by light microsco py NONE NRG Casts detection in urine sediment by light microscopy NONE NRG Mucus detection in urine sediment by light microscopy NEGATIVE NRG Complete urinalysis with reflex to culture NO NRG Urine drug screening test - 08/13/17 15: 22 Urine phencyclidine detection by screening method NEGATIVE NEGATIVE Urine benzodiazepines detection by screening method NEGATIVE NEGATIVE Urine cocaine detection NEGATIVE NEGATI VE Urine amphetamines detection by screening method N EGATIVE NEGATIVE Urine methamphetamine detection by screening method NEGATIVE NEGATIVE Urine cannabinoids detection by screening method N EGATIVE NEGATIVE Urine opiates detection by screening method NEGATI VE NEGATIVE Urine barbiturates detection NEGATIVE N EGATIVE Screening urine tricyclic antidepressants detection NEGATIVE NEGATIVE Urine methadone detection by screening method NEGA TIVE NEGATIVE Urine oxycodone detection NEGATIVE NEGA TIVE Urine propoxyphene detection NEGATIVE N EGATIVE Complete blood count (CBC) with automate d white blood cell (WBC) differential - 06/04/18 11:57 Blood leukocytes automated count (number/volume) 6.3 10*3/uL 4.3-11.0 Blood erythrocytes automated count (number/volume) 4.33 10*6/uL 4.35-5.85 Venous blood hemoglobin measurement (mass/volume) 13.0 g/dL 11.5-16.0 Blood hematocrit (volume fraction) 38 % 35-52 Automated erythrocyte mean corpuscular volume 88 [ foz_us] 80-99 Automated erythrocyte mean corpuscular h emoglobin (mass per erythrocyte) 30 pg 25-34 Automated erythrocyte mean corpuscular h emoglobin concentration measurement (mass/volume) 34 g/dL 32-36 Automated erythrocyte distribution width ratio 12. 6 % 10.0- 14.5 Automated blood platelet count (count/volume) 286 10*3/uL 130-400 Automated blood platelet mean volume measurement 9.5 [foz_us] 7.4-10.4 Automated blood neutrophils/100 leukocytes 50 % 42-75 Automated blood lymphocytes/100 leukocytes 37 % 12-44 Blood monocytes/100 leukocytes 11 % 0-12 Automated blood eosinophils/100 leukocytes 2 % 0-10 Automated blood basophils/100 leukocytes 0 % 0-10 Blood neutrophils automated count (number/volume) 3.2 10*3 1.8-7.8 Blood lymphocytes automated count (number/volume) 2.3 10*3 1.0-4.0 Blood monocytes automated count (number/volume) 0. 7 10*3 0.0-1.0 Automated eosinophil count 0.1 10*3/uL 0 .0-0.3 Automated blood basophil count (count/volume) 0.0 10*3/uL 0.0-0.1 Comprehensive metabolic panel - 06/04/18 11:57 Serum or plasma sodium measurement (moles/volume) 136 mmol/L 135-145 Serum or plasma potassium measurement (moles/volume) 3.8 mmol/L 3.6-5.0 Serum or plasma chloride measurement (moles/volume) 105 mmol/L 98-107 Carbon dioxide 23 mmol/L 21-32 Serum or plasma anion gap determination (moles/volume) 8 mmol/L 5-14 Serum or plasma urea nitrogen measurement (mass/volume ) 13 mg/dL 7-18 Serum or plasma creatinine measurement (mass/volume) 0.73 mg/dL 0.60-1.30 Serum or plasma urea nitrogen/creatinine mass ratio 18 NRG Serum or plasma creatinine measurement w ith calculation of estimated glomerular filtration rate > NRG Serum or plasma glucose measurement (mass/volume) 96 mg/dL 70-105 Serum or plasma calcium measurement (mass/volume) 9.3 mg/dL 8.5-10.1 Serum or plasma total bilirubin measurement (mass/volu me) 0.5 mg/dL 0.1-1.0 Serum or plasma alkaline phosphatase carine surement (enzymatic activity/volume) 72 U/L 40-136 Serum or plasma aspartate aminotransfera se measurement (enzymatic activity/volume) 17 U/L 5-34 Serum or plasma alanine aminotransferase measurement (enzymatic activity/volume) 16 U/L 0-55 Serum or plasma protein measurement (mass/volume) 6.9 g/dL 6.4-8.2 Serum or plasma albumin measurement (mass/volume) 4.2 g/dL 3.2-4.5 CALCIUM CORRECTED 9.1 mg/dL 8.5-10.1 THYROID STIMULATING HORMONE - 06/04/18 1 1:57 THYROID STIMULATING HORMONE 1.90 u[iU]/mL 0.35-4.94 Serum or plasma choriogonadotropin measu rement (units/volume) - 06/04/18 11:57 Serum or plasma choriogonadotropin measurement (units/ volume) 458 m[iU]/mL <5 Human immunodeficiency virus (HIV) type 1 and 2 antibody detection - 06/04/18 11:57 Serum HIV 1+2 antibody detection by immunoblot Non-Reactive Non-Reactive Body fluid hepatitis B virus surface ant igen detection - 06/04/18 11:57 Confirmatory quantitative serum or plasm a hepatitis B virus surface antigen measurement Non-Reactive Non-Reactive RUBELLA ANTIBODY IGG - 06/04/18 11:57 Interpretation of serum rubella virus IgG antibody fanny t Positive Negative Rubella IgG ab 3.63 % 0.00-0.89 Chlamydia DNA amp probe, urine - 9 11:57 Chlamydia DNA amp probe, urine Not Detected Not Detected Urine Neisseria gonorrhoeae DNA assay - 06/04/18 11:57 Gonorrhea amp DNA-urine Not Detected No t Detected Serum Varicella zoster virus IgG antibod y assay (units/volume) - 06/04/18 11:57 Serum Varicella zoster virus IgG antibody detection Positive Negative VZV IGG AB 3098.0 % 0.0-134.9 Serum reagin antibody assay (units/volum e) by [facility] - 06/04/18 11:57 Serum reagin antibody assay (units/volume) by [facility] Non Reactive NRG Complete urinalysis with reflex to cultu re - 10/15/18 15:42 Urine color determination YELLOW NRG Urine clarity determination SLIGHTLY CLOUDY NRG Urine pH measurement by test strip 7 5-9 Specific gravity of urine by test strip 1.010 1.016-1.022 Urine protein assay by test strip, semi-quantitative NEGATIVE NEGATIVE Urine glucose detection by automated test strip NE GATIVE NEGATIVE Erythrocytes detection in urine sediment by light micr oscopy NEGATIVE NEGATIVE Urine ketones detection by automated test strip NE GATIVE NEGATIVE Urine nitrite detection by test strip NEGATIVE NEGATIVE Urine total bilirubin detection by test strip NEGA TIVE NEGATIVE Urine urobilinogen measurement by automated test strip (mass/volume) NORMAL NORMAL Urine leukocyte esterase detection by dipstick 2+ NEGATIVE Automated urine sediment erythrocyte cou nt by microscopy (number/high power field) [HPF] NRG Automated urine sediment leukocyte count by microscopy (number/high power field) [HPF] NRG Bacteria detection in urine sediment by light microsco py FEW NRG Squamous epithelial cells detection in u rine sediment by light microscopy 10-25 NRG Crystals detection in urine sediment by light microsco py NONE NRG Casts detection in urine sediment by light microscopy NONE NRG Mucus detection in urine sediment by light microscopy NEGATIVE NRG Complete urinalysis with reflex to culture NO NRG Microscopic examination by wet preparati on - 10/15/18 16:30 WET PREP RESULTS NO CLUE CELLS OBSERVED NRG Complete urinalysis with reflex to cultu re - 11/07/18 15:30 Urine color determination YELLOW NRG Urine clarity determination CLEAR NR G Urine pH measurement by test strip 5 5-9 Specific gravity of urine by test strip 1.025 1.016-1.022 Urine protein assay by test strip, semi-quantitative 1+ NEGATIVE Urine glucose detection by automated test strip NE GATIVE NEGATIVE Erythrocytes detection in urine sediment by light micr oscopy 1+ NEGATIVE Urine ketones detection by automated test strip 1+ NEGATIVE Urine nitrite detection by test strip NEGATIVE NEGATIVE Urine total bilirubin detection by test strip NEGA TIVE NEGATIVE Urine urobilinogen measurement by automated test strip (mass/volume) 1 mg/dL NORMAL Urine leukocyte esterase detection by dipstick 1+ NEGATIVE Automated urine sediment erythrocyte cou nt by microscopy (number/high power field) NONE NRG Automated urine sediment leukocyte count by microscopy (number/high power field) RARE NRG Bacteria detection in urine sediment by light microsco py NEGATIVE NRG Squamous epithelial cells detection in u rine sediment by light microscopy 2-5 NRG Crystals detection in urine sediment by light microsco py NONE NRG Casts detection in urine sediment by light microscopy NONE NRG Mucus detection in urine sediment by light microscopy SMALL NRG Complete urinalysis with reflex to culture NO NRG Complete blood count (CBC) with automate d white blood cell (WBC) differential - 11/07/18 16:10 Blood leukocytes automated count (number/volume) 8.0 10*3/uL 4.3-11.0 Blood erythrocytes automated count (number/volume) 4.05 10*6/uL 4.35-5.85 Venous blood hemoglobin measurement (mass/volume) 13.1 g/dL 11.5-16.0 Blood hematocrit (volume fraction) 37 % 35-52 Automated erythrocyte mean corpuscular volume 92 [ foz_us] 80-99 Automated erythrocyte mean corpuscular h emoglobin (mass per erythrocyte) 32 pg 25-34 Automated erythrocyte mean corpuscular h emoglobin concentration measurement (mass/volume) 35 g/dL 32-36 Automated erythrocyte distribution width ratio 12. 9 % 10.0- 14.5 Automated blood platelet count (count/volume) 216 10*3/uL 130-400 Automated blood platelet mean volume measurement 9.9 [foz_us] 7.4-10.4 Automated blood neutrophils/100 leukocytes 70 % 42-75 Automated blood lymphocytes/100 leukocytes 21 % 12-44 Blood monocytes/100 leukocytes 8 % 0-12 Automated blood eosinophils/100 leukocytes 1 % 0-10 Automated blood basophils/100 leukocytes 0 % 0-10 Blood neutrophils automated count (number/volume) 5.6 10*3 1.8-7.8 Blood lymphocytes automated count (number/volume) 1.7 10*3 1.0-4.0 Blood monocytes automated count (number/volume) 0. 6 10*3 0.0-1.0 Automated eosinophil count 0.1 10*3/uL 0 .0-0.3 Automated blood basophil count (count/volume) 0.0 10*3/uL 0.0-0.1 Comprehensive metabolic panel - 11/07/18 16:10 Serum or plasma sodium measurement (moles/volume) 136 mmol/L 135-145 Serum or plasma potassium measurement (moles/volume) 3.8 mmol/L 3.6-5.0 Serum or plasma chloride measurement (moles/volume) 105 mmol/L 98-107 Carbon dioxide 22 mmol/L 21-32 Serum or plasma anion gap determination (moles/volume) 9 mmol/L 5-14 Serum or plasma urea nitrogen measurement (mass/volume ) 7 mg/dL 7-18 Serum or plasma creatinine measurement (mass/volume) 0.62 mg/dL 0.60-1.30 Serum or plasma urea nitrogen/creatinine mass ratio 11 NRG Serum or plasma creatinine measurement w ith calculation of estimated glomerular filtration rate > NRG Serum or plasma glucose measurement (mass/volume) 69 mg/dL 70-105 Serum or plasma calcium measurement (mass/volume) 9.0 mg/dL 8.5-10.1 Serum or plasma total bilirubin measurement (mass/volu me) 0.4 mg/dL 0.1-1.0 Serum or plasma alkaline phosphatase carine surement (enzymatic activity/volume) 64 U/L 40-136 Serum or plasma aspartate aminotransfera se measurement (enzymatic activity/volume) 17 U/L 5-34 Serum or plasma alanine aminotransferase measurement (enzymatic activity/volume) 6 U/L 0-55 Serum or plasma protein measurement (mass/volume) 6.2 g/dL 6.4-8.2 Serum or plasma albumin measurement (mass/volume) 3.5 g/dL 3.2-4.5 CALCIUM CORRECTED 9.4 mg/dL 8.5-10.1 Complete blood count (CBC) with automate d white blood cell (WBC) differential - 02/02/19 08:23 Blood leukocytes automated count (number/volume) 10.0 10*3/uL 4.3-11.0 Blood erythrocytes automated count (number/volume) 4.33 10*6/uL 4.35-5.85 Venous blood hemoglobin measurement (mass/volume) 13.5 g/dL 11.5-16.0 Blood hematocrit (volume fraction) 39 % 35-52 Automated erythrocyte mean corpuscular volume 91 [ foz_us] 80-99 Automated erythrocyte mean corpuscular h emoglobin (mass per erythrocyte) 31 pg 25-34 Automated erythrocyte mean corpuscular h emoglobin concentration measurement (mass/volume) 34 g/dL 32-36 Automated erythrocyte distribution width ratio 13. 3 % 10.0- 14.5 Automated blood platelet count (count/volume) 232 10*3/uL 130-400 Automated blood platelet mean volume measurement 9.8 [foz_us] 7.4-10.4 Automated blood neutrophils/100 leukocytes 72 % 42-75 Automated blood lymphocytes/100 leukocytes 18 % 12-44 Blood monocytes/100 leukocytes 8 % 0-12 Automated blood eosinophils/100 leukocytes 2 % 0-10 Automated blood basophils/100 leukocytes 0 % 0-10 Blood neutrophils automated count (number/volume) 7.2 10*3 1.8-7.8 Blood lymphocytes automated count (number/volume) 1.8 10*3 1.0-4.0 Blood monocytes automated count (number/volume) 0. 8 10*3 0.0-1.0 Automated eosinophil count 0.2 10*3/uL 0 .0-0.3 Automated blood basophil count (count/volume) 0.0 10*3/uL 0.0-0.1 Complete blood count (CBC) with automate d white blood cell (WBC) differential - 02/03/19 06:07 Blood leukocytes automated count (number/volume) 10.4 10*3/uL 4.3-11.0 Blood erythrocytes automated count (number/volume) 3.46 10*6/uL 4.35-5.85 Venous blood hemoglobin measurement (mass/volume) 11.0 g/dL 11.5-16.0 Blood hematocrit (volume fraction) 33 % 35-52 Automated erythrocyte mean corpuscular volume 94 [ foz_us] 80-99 Automated erythrocyte mean corpuscular h emoglobin (mass per erythrocyte) 32 pg 25-34 Automated erythrocyte mean corpuscular h emoglobin concentration measurement (mass/volume) 34 g/dL 32-36 Automated erythrocyte distribution width ratio 13. 3 % 10.0- 14.5 Automated blood platelet count (count/volume) 180 10*3/uL 130-400 Automated blood platelet mean volume measurement 10.1 [foz_us] 7.4-10.4 Automated blood neutrophils/100 leukocytes 64 % 42-75 Automated blood lymphocytes/100 leukocytes 26 % 12-44 Blood monocytes/100 leukocytes 8 % 0-12 Automated blood eosinophils/100 leukocytes 1 % 0-10 Automated blood basophils/100 leukocytes 0 % 0-10 Blood neutrophils automated count (number/volume) 6.7 10*3 1.8-7.8 Blood lymphocytes automated count (number/volume) 2.7 10*3 1.0-4.0 Blood monocytes automated count (number/volume) 0. 9 10*3 0.0-1.0 Automated eosinophil count 0.2 10*3/uL 0 .0-0.3 Automated blood basophil count (count/volume) 0.0 10*3/uL 0.0-0.1 Encounters ACCT No. Visit Date/Time Discharge Status Pt. Type Provider Facility Loc./Unit Complaint [id number] 02/02/2019 08:38:00 16:55:00 DIS Inpatient HEATH ANGELO DO [facility] LDRP LABOR [id number] 02/03/2019 07:00:00 23:59:59 CLS Preadmit HEATH ANGELO DO INDUCTION [id number] 11/07/2018 15:08:00 19:47:00 DIS Outpatient SERGIO DOUGHERTY DO [facility] WSo NAUSEA, VOMITTING [id number] 10/15/2018 15:16:00 17:07:00 DIS Outpatient PETEY DO HEATH Tommy [facility] WSo LEAKING [id number] 09/24/2018 13:17:00 23:59:59 CLS Outpatient LOTTIEPABLO DOTY HEATH Tommy [facility] RAD [id number] 06/04/2018 11:21:00 23:59:59 CLS Outpatient THALIA CAMPBELL MD [facility] LAB N91.2 [id number] 08/13/2017 14:49:00 018 16:57:00 DIS Emergency LINSEY BERNARDO, KHARI Simms [facility] ER RIGHT SIDE ARM HEAVINES S SLURRED SPEACH [id number] 03/12/2017 11:54:00 017 23:59:59 CLS Outpatient THALIA CAMPBELL MD [facility] LAB ELEVATED BP [id number] 12/31/2016 16:51:00 017 23:59:59 CLS Outpatient THALIA CAMPBELL MD [facility] LAB 702.0 [id number] 12/15/2013 19:06:00 014 18:54:00 DIS Outpatient PAUL MENA DO [facility] SDC ABDOMINAL PAIN EF 32% [id number] 12/15/2013 09:38:00 014 23:59:59 CLS Outpatient TRACI MENA [facility] CARD NEGATIVE GB SON O [id number] 12/14/2013 06:56:00 014 23:59:59 CLS Outpatient PAUL MENA DO [facility] RAD RIGHT UPPER DIRK DRANT PAIN [id number] 05/20/2013 12:53:00 013 23:59:59 CLS Outpatient PAUL MENA DO [facility] RAD RLQ PAIN [id number] 05/16/2013 18:25:00 013 23:59:59 CLS Outpatient PAUL MENA DO [facility] RAD POSS APPENDICIT IS
[2019-09-24] MEDS ORDERED: FLUO40CA (03:16)
--- NOTE | 2019-09-24 03:40 | ED EENT ---
History of Present Illness General Chief Complaint: Eye Problems Stated Complaint: RT EYE PRESSURE Nursing Triage Note: right eye redness/pressure. hx fb thursday Source: patient Exam Limitations: no limitations History of Present Illness Date Seen by Provider: Sep 24, 2019 Time Seen by Provider: 03:20 Initial Comments Here with report of right eye redness and swelling. She states that it appears like the white part of the eye is swollen with fluid. She did have foreign body last Thursday and that was removed by Dr. Obrien on Thursday in the office. Appare ntly that was a piece of grass or grass seed. Has had no problems since. Went to bed last night fine and woke up a little while ago with the swelling. It scared her so she presented to the emergency department for further evaluation. Denies recent injury or other concerns. Timing/Duration: abrupt Severity: mild Location: eye (R) Prearrival Treatment: no prearrival treatment Associated Symptoms: No fever, No nasal congestion/drainage, No sore throat Allergies and Home Medications Allergies Coded Allergies: Penicillins (Unverified Allergy, Unknown, PT TOLERATED AMPICILLIN WITH NO REACTION, 12/16/13) PT HAS NEVER TAKEN PENICILLINS DUE TO A FAMILY TENDENCY TO HAVE SEVERE ALLERGIC REACTIONS Home Medications [id number]/Iron Fumarate/FA/Dss 1 Each Tablet, 1 EACH PO DAILY, (Reported) Patient Home Medication List Home Medication List Reviewed: Yes Review of Systems Review of Systems Constitutional: see HPI Eyes: See HPI, Blurred Vision, Pain (itching) Nose: no symptoms reported Throat: no symptoms reported Respiratory: no symptoms reported Cardiovascular: no symptoms reported Past Orfgwko-Mttweq-Yyrqut Hx Past Med/Social Hx: Reviewed Nursing Past Med/Soc Hx Patient Social History Alcohol Use: Denies Use Recreational Drug Use: No Smoking Status: Never a Smoker 2nd Hand Smoke Exposure: No Recent Foreign Travel: No Contact w/Someone Who Travel: No Recent Infectious Disease Expo: No Recent Hopitalizations: No Physical Abuse: No Sexual Abuse: No Mistreated: No Fear: No Immunizations Up To Date Tetanus Booster (TDap): Unknown PED Vaccines UTD: Yes Seasonal Allergies Seasonal Allergies: No Past Medical History Surgeries: Yes (dental) Gallbladder, Tonsillectomy Respiratory: No Cardiac: No Neurological: No : No Female Reproductive Disorders: Menstrual Problems Sexually Transmitted Disease: No HIV/AIDS: No Genitourinary: No Gastrointestinal: No Musculoskeletal: No Endocrine: No HEENT: No Cancer: No Psychosocial: Yes Depression Integumentary: No Blood Disorders: No Adverse Reaction/Blood Tranf: No Family Medical History Reviewed Nursing Family Hx Dysphasia FH: colon polyps 19 FATHER Hypertension 19 FATHER Visual Acuity : Eye Location: Bilaterally (corrected) Vision Acuity Degree: 20/25 Physical Exam Vital Signs Vital Signs - First Documented 09/24/19 03:08 Temp 36.8 Pulse 72 Resp 16 B/P (MAP) 111/81 (91) Pulse Ox 97 O2 Delivery Room Air Height, Weight, BMI Height: 5'3.00" Weight: 218lbs. 0.4oz. 98.550450hv; 33.00 BMI Method:Stated General Appearance: WD/WN, no apparent distress Eyes: right eye conjunctival inflammation; left eye normal inspection; bilateral eye PERRL, bilateral eye EOMI Ears: bilateral ear auricle normal, bilateral ear canal normal, bilateral ear TM normal Nose: normal inspection Mouth/Throat: pharynx normal Cardiovascular: regular rate, rhythm, no murmur Respiratory: lungs clear, normal breath sounds Neurologic/Psychiatric: alert, oriented x 3 Progress/Results/Core Measures Results/Orders Vital Signs/I&O 09/24/19 03:08 Temp 36.8 Pulse 72 Resp 16 B/P (MAP) 111/81 (91) Pulse Ox 97 O2 Delivery Room Air Blood Pressure Mean: 91 Progress Progress Note : Progress Note Seen and evaluated. Findings consistent with allergic conjunctivitis. We did discuss supportive care and follow-up. Discharged home with return precautions. Patient verbalize understanding instructions and agreement with plan. Departure Impression Primary Impression: Allergic conjunctivitis Qualified Codes: H10.11 - Acute atopic conjunctivitis, right eye Disposition: HOME, SELF-CARE Condition: Improved Departure-Patient Inst. Decision time for Depature: 03:37 Referrals: AUBREY OBRIEN OD, PATRICIA C APRN (PCP) Primary Care Physician Patient Instructions: Conjunctivitis (Noninfectious [place]) Add. Discharge Instructions: All discharge instructions reviewed with patient and/or family. Voiced understanding. His cool compresses to the eye several times a day to reduce swelling. He should wash her face and you may even try to shower before you go to bed when you get home to reduce allergen load. You may take ibuprofen 400 milligrams to reduce pain and swelling. You may try [id number] Benadryl or other antihistamines to reduce the allergic symptoms. If things aren't getting better in the morning, call Dr. Obrien at [phone] and let him know that you were seen in the ER and things are not better. Return for worse pain, loss of vision or other concerns as needed. PAIGE PEARL MD Sep 24, 2019 03:40
== END 2019-09-24 03:41 | disposition home or self-care (01) ==
LOC: EDUNIT# 03:00 → ER 03:04
DX: H10.11 Acute atopic conjunctivitis, right eye (principal); Z88.0 Allergy status to penicillin; Z82.49 Family history of ischemic heart disease and other diseases of the circulatory system
CPT/HCPCS: 99282

== ENCOUNTER → 2020-09-27 | Outpatient (CLI) | payer OTHER ==
[~2020-09-27] MED LIST changes: +FLUO40CA
--- NOTE | 2020-09-27 16:33 | Diagnostic Imaging Report ---
INDICATION: HX OF FALL AND LOW BACK PAIN TECHNIQUE: AP pelvis 4:08 PM CORRELATION STUDY: None FINDINGS: The pelvis demonstrates no evidence for acute fracture. The pectineal lines and obturator rings are maintained. Pubic symphysis and SI joints are unremarkable. Hips unremarkable. IMPRESSION: Negative examination of the pelvis. Dictated by: Dictated on workstation # [id number]
--- NOTE | 2020-09-27 17:39 | Diagnostic Imaging Report ---
INDICATION: History of fall and low back pain. TECHNIQUE: AP and lateral views of the sacrum and coccyx, 4:10 p.m. CORRELATION STUDY: None. FINDINGS: The pelvis is unremarkable. Sacroiliac joints, pubic symphysis and bilateral hips joints are maintained. Benign-appearing sclerotic foci of the right proximal femur. There is no abnormal acute angulation or offset of the sacrum and/or coccyx. No miguel bony destructive change. IMPRESSION: Negative for acute bony abnormality about the sacrum or coccyx. Dictated by: Dictated on workstation # [id number]
== END ==
LOC: RAD 15:57
PROVIDERS: ATTEND Nurse Practitioner Family
DX: M54.5 Low back pain (principal); Z91.81 History of falling
CPT/HCPCS: 72170; 72220

== ENCOUNTER 2021-09-29 14:09 | Emergency (ER) | payer OTHER ==
[~2021-09-29] VITALS: Ht 162 cm; Wt 90.7 kg
[2021-09-29] MEDS ORDERED: LACTATED RINGERS 1,000 ML IV ONE ×2 (14:30→15:30)
--- NOTE | 2021-09-29 14:36 | ED General ---
General Chief Complaint: OB < 20 WEEKS Stated Complaint: 6 WKS PREG - VOMITING Nursing Triage Note: ARRIVED VIA AMB TO ROOM 03 WITH COMPLAINTS OF VOMITING STARTING THIS AM. PT STATES SHE HAS TAKEN ZOFRAN AND REGLAN. Source of Information: Patient History of Present Illness Date Seen by Provider: September 29, 2021 Time Seen by Provider: 14:25 Initial Comments PT ARRIVES VIA POV FROM HOME PT IS 6 WEEKS , WITH LMP 08/13/21 BEGAN HAVING NAUSEA AND VOMITING EARLY THIS MORNING--IS UNABLE TO KEEP WATER DOWN HAS VOMITED 12-15 TIMES HAS RX FOR ZOFRAN AND REGLAN CALLED IN BY DR. ANGELO ABOUT 2 WEEKS AGO FOR THIS PROBLEM--HAS NOT BEEN ABLE TO KEEP THEM DOWN HAS MILD LOWER ABDOMINAL CRAMPING NO VAGINAL BLEEDING OR DISCHARGE HAS HAD SOME DYSURIA AND URINARY FREQUENCY. NO FEVER PT HAD A SYNCOPAL EPISODE AT WORK ON THURSDAY AND BP WAS 169/100'S ( PT WORKS HERE IN ICU) PT HAS AN APPOINTMENT WITH DR. ANGELO ON THURSDAY FOR THAT PROBLEM HAS HER FIRST OB INTAKE APPOINTMENT ON THURSDAY, AND HER FIRST OB APPOINTMENT WITH DR. ANGELO THE FOLLOWING THURSDAY PT IS CURRENTLY TAKING VITAMINS PT IS AB0 PT HAD ALOT OF NAUSEA AND VOMITING WELL GESTATIONAL HTN WITH FIRST AND WAS HOSPITALIZED X 3 DURING THAT FOR THESE SAME ISSUES. THAT CHILD IS 2 1/2 YEARS OLD OB: DR. ANGELO Allergies and Home Medications Allergies Coded Allergies: Penicillins (Unverified Allergy, Unknown, PT TOLERATED AMPICILLIN WITH NO REACTION, 12/16/13) PT HAS NEVER TAKEN PENICILLINS DUE TO A FAMILY TENDENCY TO HAVE SEVERE ALLERGIC REACTIONS Patient Home Medication List Home Medication List Reviewed: Yes Doxylamine/Pyridoxine HCl (Russ Parra 10-10 mg Tablet) 10 Mg-10 Mg Tablet., 2 EACH PO HS Prescribed by: DOMENIC SWIFT on 09/29/21 1551 Fluoxetine HCl (Fluoxetine HCl) 40 Mg Capsule, (Reported) Entered as Reported by: LATONIA MORSE on 09/24/19 0316 Nitrofurantoin Monohyd/M-Cryst (Macrobid 100 mg Capsule) 100 Mg Capsule, 1 TAB PO BID Prescribed by: DOMENIC SWIFT on 09/29/21 1551 Zaf255/Iron Fumarate/FA/Dss ( 19 Tablet) 1 Each Tablet, 1 EACH PO DAILY, (Reported) Entered as Reported by: ABEL ESTRELLA on 10/15/18 1549 Review of Systems Review of Systems Constitutional: no symptoms reported; No fever EENTM: No blurred vision, No double vision Respiratory: no symptoms reported; No short of breath Cardiovascular: see HPI; No chest pain Gastrointestinal: see HPI, abdominal pain, nausea, vomiting Genitourinary: see HPI, dysuria, frequency : Yes LMP: Aug 13, 2021 Musculoskeletal: no symptoms reported Skin: no symptoms reported Psychiatric/Neurological: See HPI (SYNCOPE); Denies Headache, Denies Numbness, Denies Paresthesia, Denies Seizure, Denies Tingling, Denies Weakness Hematologic/Lymphatic: No Symptoms Reported Immunological/Allergic: no symptoms reported Past Dpdrxnb-Gzbzow-Bjxltg Hx Patient Social History Tobacco Use?: No Substance use?: No Alcohol Use?: No Immunizations Up To Date Tetanus Booster (TDap): Unknown PED Vaccines UTD: Yes Second COVID19 Vaccination Frank: [facility] COVID19 Vaccine Test And Turn Up Technician: KADE Seasonal Allergies Seasonal Allergies: No Past Medical History Surgeries: Yes (dental) Gallbladder, Tonsillectomy Respiratory: No Cardiac: Yes (GESTATIONAL HTN) Neurological: No : Yes Last Menstrual Period: Aug 13, 2021 Reproductive Disorders: Yes Female Reproductive Disorders: Menstrual Problems Sexually Transmitted Disease: No HIV/AIDS: No Genitourinary: No Gastrointestinal: No Musculoskeletal: No Endocrine: No HEENT: No Cancer: No Psychosocial: Yes Depression Integumentary: No Blood Disorders: No Adverse Reaction/Blood Tranf: No Family Medical History Dysphasia FH: colon polyps 19 FATHER Hypertension 19 FATHER Physical Exam Vital Signs Vital Signs - First Documented 09/29/21 14:15 Temp 37.7 Pulse 94 Resp 16 B/P (MAP) 140/83 (102) Pulse Ox 97 O2 Delivery Room Air Capillary Refill : Less Than 3 Seconds Height, Weight, BMI Height: 5'3.00" Weight: 218lbs. 0.4oz. 98.085774pl; 34.00 BMI Method:Stated General Appearance: No Apparent Distress, WD/WN Neck: Normal Inspection Respiratory: Normal Breath Sounds, No Accessory Muscle Use, No Respiratory Distress Cardiovascular: Regular Rate, Rhythm, No Edema, No JVD, No Murmur, Normal Peripheral Pulses Gastrointestinal: Soft Back: No CVA Tenderness Extremity: Normal Inspection, No Pedal Edema Neurologic/Psychiatric: Alert, Oriented x3, No Motor/Sensory Deficits, Normal Mood/Affect, real estate photographer II-XII Norm as Tested Skin: Normal Color, Warm/Dry Progress/Results/Core Measures Suspected Sepsis SIRS Temperature: Pulse: 94 Respiratory Rate: 16 Laboratory Tests 09/29/21 14:33: White Blood Count 6.6 Blood Pressure 140 /83 Mean: 102 Laboratory Tests 09/29/21 14:33: Creatinine 0.67, Platelet Count 284, Total Bilirubin 0.6 Results/Orders Lab Results Laboratory Tests Test 09/29/21 14:33 Range/Units White Blood Count 6.6 4.3-11.0 10^3/uL Red Blood Count 4.97 3.80-5.11 10^6/uL Hemoglobin 14.8 11.5-16.0 g/dL Hematocrit 43 35-52 % Mean Corpuscular Volume 87 80-99 fL Mean Corpuscular Hemoglobin 30 25-34 pg Mean Corpuscular Hemoglobin Concent 34 32-36 g/dL Red Cell Distribution Width 12.5 10.0-14.5 % Platelet Count 284 130-400 10^3/uL Mean Platelet Volume 9.3 9.0-12.2 fL Immature Granulocyte % (Auto) 0 % Neutrophils (%) (Auto) 67 42-75 % Lymphocytes (%) (Auto) 23 12-44 % Monocytes (%) (Auto) 9 0-12 % Eosinophils (%) (Auto) 1 0-10 % Basophils (%) (Auto) 0 0-10 % Neutrophils # (Auto) 4.4 1.8-7.8 X 10^3 Lymphocytes # (Auto) 1.5 1.0-4.0 X 10^3 Monocytes # (Auto) 0.6 0.0-1.0 X 10^3 Eosinophils # (Auto) 0.1 0.0-0.3 10^3/uL Basophils # (Auto) 0.0 0.0-0.1 10^3/uL Immature Granulocyte # (Auto) 0.0 0.0-0.1 10^3/uL Urine Color YELLOW Urine Clarity CLEAR Urine pH 5.5 5-9 Urine Specific [place] 1.025 H 1.016-1.022 Urine Protein NEGATIVE NEGATIVE Urine Glucose (UA) NEGATIVE NEGATIVE Urine Ketones NEGATIVE NEGATIVE Urine Nitrite NEGATIVE NEGATIVE Urine Bilirubin NEGATIVE NEGATIVE Urine Urobilinogen 0.2 < = 1.0 MG/DL Urine Leukocyte Esterase TRACE H NEGATIVE Urine RBC (Auto) NEGATIVE NEGATIVE Urine RBC RARE /HPF Urine WBC 0-2 /HPF Urine Squamous Epithelial Cells 2-5 /HPF Urine Crystals NONE /LPF Urine Bacteria FEW H /HPF Urine Casts NONE /LPF Urine Mucus NEGATIVE /LPF Urine Culture Indicated NO Sodium Level 138 135-145 MMOL/L Potassium Level 3.3 L 3.6-5.0 MMOL/L Chloride Level 103 98-107 MMOL/L Carbon Dioxide Level 22 21-32 MMOL/L Anion Gap 13 5-14 MMOL/L Blood Urea Nitrogen 7 7-18 MG/DL Creatinine 0.67 0.60-1.30 MG/DL Estimat Glomerular Filtration Rate 121 BUN/Creatinine Ratio 10 Glucose Level 106 H 70-105 MG/DL Calcium Level 9.1 8.5-10.1 MG/DL Corrected Calcium 9.1 8.5-10.1 MG/DL Magnesium Level 1.8 1.6-2.4 MG/DL Total Bilirubin 0.6 0.1-1.0 MG/DL Aspartate Amino Transf (AST/SGOT) 13 5-34 U/L Alanine Aminotransferase (ALT/SGPT) 7 0-55 U/L Alkaline Phosphatase 56 40-136 U/L Total Protein 6.8 6.4-8.2 GM/DL Albumin 4.0 3.2-4.5 GM/DL Human Chorionic Gonadotropin, Quant 18584 H <5 MIU/ML My Orders Orders - DOMENIC SWIFT DO Ed Iv/Invasive Line Start (09/29/21 14:25) Cbc With Automated Diff (09/29/21 14:25) Comprehensive Metabolic Panel (09/29/21 14:25) Hcg,Quantitative (09/29/21 14:25) Magnesium (09/29/21 14:25) Ua Culture If Indicated (09/29/21 14:25) Ed Iv/Invasive Line Start (09/29/21 14:25) Lactated Ringers (Lr 1000 Ml Iv Solution (09/29/21 14:30) Metoclopramide Injection (Reglan Injecti (09/29/21 14:45) Urine Culture (09/29/21 15:13) Ondansetron Injection (Zofran Injectio (09/29/21 15:30) Ed Iv/Invasive Line Start (09/29/21 15:28) Lactated Ringers (Lr 1000 Ml Iv Solution (09/29/21 15:30) Medications Given in ED Current Medications Medications Dose Ordered Sig/Bora Route Start Time Stop Time Status Last Admin Dose Admin Lactated Ringer's 1,000 ml @ 0 mls/hr Q0M ONCE IV 09/29/21 14:30 09/29/21 14:31 DC 09/29/21 14:45 1,000 MLS/HR Lactated Ringer's 1,000 ml @ 0 mls/hr Q0M ONCE IV 09/29/21 15:30 09/29/21 15:31 DC 09/29/21 15:37 1,000 MLS/HR Metoclopramide HCl 10 mg ONCE ONCE IVP 09/29/21 14:45 09/29/21 14:46 DC 09/29/21 14:44 10 MG Ondansetron HCl 4 mg ONCE ONCE IVP 09/29/21 15:30 09/29/21 15:31 DC 09/29/21 15:37 4 MG Vital Signs/I&O 09/29/21 09/29/21 14:15 16:18 Temp 37.7 Pulse 94 72 Resp 16 16 B/P (MAP) 140/83 (102) 106/76 Pulse Ox 97 98 O2 Delivery Room Air Room Air Capillary Refill : Less Than 3 Seconds Blood Pressure Mean: 102 Progress Note : Progress Note GIVEN IV FLUIDS, ZOFRAN AND REGLAN SYMPTOMS MUCH IMPROVED NO VOMITING DURING ER STAY Departure Impression Primary Impression: Nausea and vomiting during prior to 22 weeks gestation Additional Impression: UTI (urinary tract infection) in in first trimester Disposition: 01 HOME, SELF-CARE Condition: Improved Departure-Patient Inst. Decision time for Depature: 15:49 Referrals: NO,LOCAL PHYSICIAN (PCP) Primary Care Physician TRACI DIXON APRN (Family) Primary Care Physician HEATH ANGELO DO Patient Instructions: Urinary Tract Infections in , Morning Sickness ED Add. Discharge Instructions: LOTS OF CLEAR LIQUIDS--WATER, BROTH,JELLO, GATORADE BLAND DIET--BANANAS, RICE, APPLESAUCE, TOAST, SALTINES TYLENOL NEEDED FOR PAIN KEEP YOUR APPOINTMENTS SCHEDULED FOR THIS WEEK AND NEXT RETURN TO ER IF SYMPTOMS WORSEN All discharge instructions reviewed with patient and/or family. Voiced understanding. Scripts Doxylamine/Pyridoxine HCl (Russ Parra 10-10 mg Tablet) 10 Mg-10 Mg Tablet.dr 2 EACH PO HS, #60 TAB Prov: DOMENIC SWIFT DO 09/29/21 Nitrofurantoin Monohyd/M-Cryst (Macrobid 100 mg Capsule) 100 Mg Capsule 1 TAB PO BID, #20 CAP Prov: DOMENIC SWIFT DO 09/29/21 DOMENIC SWIFT DO September 29, 2021 14:36
[2021-09-29 14:41] LABS: BASOPHILS % (AUTO) 0 % (0-10); EOSINOPHILS # (AUTO) 0.1 10^3/uL (0.0-0.3); EOSINOPHILS % (AUTO) 1 % (0-10); HEMATOCRIT 43 % (35-52); HEMOGLOBIN 14.8 g/dL (11.5-16.0); LYMPHOCYTES # (AUTO) 1.5 X 10^3 (1.0-4.0); LYMPHOCYTES % (AUTO) 23 % (12-44); MEAN CORPUSCULAR HEMOGLOBIN 30 pg (25-34); MEAN CORPUSCULAR HGB CONC 34 g/dL (32-36); MEAN CORPUSCULAR VOLUME 87 fL (80-99); MEAN PLATELET VOLUME 9.3 fL (9.0-12.2); MONOCYTES # (AUTO) 0.6 X 10^3 (0.0-1.0); MONOCYTES % (AUTO) 9 % (0-12); NEUTROPHILS # (AUTO) 4.4 X 10^3 (1.8-7.8); NEUTROPHILS % (AUTO) 67 % (42-75); PLATELET COUNT 284 10^3/uL (130-400); WHITE BLOOD COUNT 6.6 10^3/uL (4.3-11.0)
[2021-09-29] MEDS ORDERED: METOCLOPRAMIDE INJ 10 MG/2 ML (REGLAN) IVP ONE (14:45)
[2021-09-29 14:47] LABS: BILIRUBIN,URINE NEGATIVE (NEGATIVE); CLARITY,URINE CLEAR; COLOR,URINE YELLOW; GLUCOSE, URINE (UA) NEGATIVE (NEGATIVE); KETONES,URINE NEGATIVE (NEGATIVE); LEUKOCYTE ESTERASE ,URINE TRACE (NEGATIVE); NITRITE,URINE NEGATIVE (NEGATIVE); PH,URINE 5.5 (5-9); PROTEIN,URINE NEGATIVE (NEGATIVE)
[2021-09-29 14:52] LABS: POTASSIUM 3.3 MMOL/L (3.6-5.0)
[2021-09-29 14:53] LABS: CALCIUM 9.1 MG/DL (8.5-10.1)
[2021-09-29 14:54] LABS: TOTAL PROTEIN 6.8 GM/DL (6.4-8.2)
[2021-09-29 14:56] LABS: BILIRUBIN,TOTAL 0.6 MG/DL (0.1-1.0)
[2021-09-29 14:58] LABS: CREATININE SERUM 0.67 MG/DL (0.60-1.30)
[2021-09-29 15:01] LABS: MAGNESIUM 1.8 MG/DL (1.6-2.4)
[2021-09-29 15:03] LABS: BACTERIA,URINE FEW /HPF; RBC,URINE RARE /HPF; WBC,URINE 0-2 /HPF
[2021-09-29] MEDS ORDERED: ONDANSETRON 4 MG/2 ML (SDV) Z0FRAN IVP ONE (15:30)
[2021-09-29] MEDS ORDERED: DOXY1TAB3 PO (15:51)
[2021-09-29] MEDS ORDERED: NITR-65 PO (15:51)
[2021-09-29 16:18] VITALS: BP 106/76
== END 2021-09-29 16:18 | disposition home or self-care (01) ==
LOC: EDUNIT# 14:09 → ER 14:10
DX: O21.0 Mild hyperemesis gravidarum (principal); O23.41 Unspecified infection of urinary tract in pregnancy, first trimester; O13.1 Gestational [pregnancy-induced] hypertension without significant proteinuria, first trimester; Z3A.01 Less than 8 weeks gestation of pregnancy
CPT/HCPCS: 36415; 80053; 81000; 83735; 84702; 84703; 85025; 87088

== ENCOUNTER → 2021-10-01 | Outpatient (CLI) | payer OTHER ==
[~2021-10-01] MED LIST changes: +DOXY1TAB3 PO; +NITR-65 PO
[2021-10-01 16:51] LABS: BASOPHILS % (AUTO) 0 % (0-10); EOSINOPHILS # (AUTO) 0.1 10^3/uL (0.0-0.3); EOSINOPHILS % (AUTO) 1 % (0-10); HEMATOCRIT 38 % (35-52); LYMPHOCYTES # (AUTO) 1.7 10^3/uL (1.0-4.0); LYMPHOCYTES % (AUTO) 22 % (12-44); MEAN CORPUSCULAR HEMOGLOBIN 30 pg (25-34); MEAN CORPUSCULAR HGB CONC 34 g/dL (32-36); MEAN CORPUSCULAR VOLUME 88 fL (80-99); MONOCYTES # (AUTO) 0.5 10^3/uL (0.0-1.0); MONOCYTES % (AUTO) 6 % (0-12); NEUTROPHILS # (AUTO) 5.5 10^3/uL (1.8-7.8); NEUTROPHILS % (AUTO) 70 % (42-75); PLATELET COUNT 246 10^3/uL (130-400); WHITE BLOOD COUNT 7.9 10^3/uL (4.3-11.0)
[2021-10-01 21:24] LABS: HEPATITIS C ANTIBODY C Non-Reactive (Non-Reactive)
== END ==
LOC: LABNPT 16:35
PROVIDERS: ATTEND Obstetrics & Gynecology
DX: Z36.89 Encounter for other specified antenatal screening (principal)
CPT/HCPCS: 85025; 86703; 86762; 86780; 86803; 86850; 86900; 86901; 87340

== ENCOUNTER → 2021-12-27 | Outpatient (CLI) | payer OTHER ==
--- NOTE | 2021-12-27 13:20 | Diagnostic Imaging Report ---
INDICATION: Supervision of normal . Anatomy scan. TECHNIQUE: Multiple real-time grayscale images were obtained over the gravid uterus. COMPARISON: None FINDINGS: A single live intrauterine gestation is visualized in cephalic presentation. heart tones measure 146 bpm. The placenta is anterior and not low lying. The cervix is closed and measures 3.9 cm in length. The GAMALIEL visually appears normal although no dedicated measurements were provided. Views of the adnexa demonstrate no evidence of mass or free fluid. The kidneys, bladder, stomach, brain, four-chamber heart, three-vessel cord, and cord insertion are visualized and have a normal appearance. The outflow tracts and spine are not well seen due to position. Biometrical measurements are as follows: Biparietal 4.68 cm, age 20 weeks 2 days. Head circumference 17.78 cm, age 20 weeks 2 days. Abdominal circumference 14.75 cm, age 20 weeks 1 days. Femur length 3.20 cm, age 20 weeks 0 days. Sonographic estimate age: 20 weeks 2 days. Sonographic estimated date of delivery: 05/14/2022. Estimated Weight: 328 gm (+/- 48 gm). LMP percentile: 25%. heart rate: 146 beats per minute. number: 1 of 1. IMPRESSION: 1. Single live intrauterine gestation measuring 20 weeks 2 days and estimated due date of 05/14/2022. These are within range clinical dates. Recommend continued follow-up as indicated. 2. The spine and outflow tracts are not well seen due to position. The remainder of the anatomy is unremarkable. Dictated by: Dictated on workstation # [id number]
== END ==
LOC: RAD 10:25
PROVIDERS: ATTEND Nurse Practitioner Women's Health
DX: Z34.92 Encounter for supervision of normal pregnancy, unspecified, second trimester (principal); Z3A.20 20 weeks gestation of pregnancy
CPT/HCPCS: 76805

== ENCOUNTER → 2022-04-02 | Outpatient (CLI) | payer OTHER | LOC: CARD 12:15 | PROVIDERS: ATTEND Obstetrics & Gynecology | DX: R00.0 Tachycardia, unspecified (principal) | CPT/HCPCS: 93005 ==

== ENCOUNTER → 2022-04-15 | Outpatient (CLI) | payer OTHER ==
[~2022-04-15] MED LIST changes: +FAMO-119 PO; +FLUO40CA12 PO
== END ==
LOC: CARD 08:46
PROVIDERS: ATTEND Internal Medicine Cardiovascular Disease
DX: I51.7 Cardiomegaly (principal)
CPT/HCPCS: 93306

== ENCOUNTER 2022-04-16 22:02 | Outpatient (CLI) | payer OTHER ==
[~2022-04-16] VITALS: Ht 162.6 cm; Wt 103.6 kg
[~2022-04-16 22:02] MED LIST changes: -FAMO-119 PO; -FLUO40CA12 PO
[2022-04-16 22:42] VITALS: BP 138/74
[2022-04-16] MEDS ORDERED: FAMO-119 PO (22:51)
[2022-04-16] MEDS ORDERED: FLUO40CA12 PO (22:51)
--- NOTE | 2022-04-17 09:04 | Physician Query-Final Dx ---
FRANC04/17/22 0904: Clinic Account Progress/Dx Physician Query: Please give diagnosis Please include # weeks gestation Date of Service Apr 16, 2022 at 22:02 WALTER FLANAGAN MD 04/17/22 1423: Clinic Account Progress/Dx DIAGNOSIS: Diagnosis Decreased movement at 36 weeks gestation FRANC,JunApr 17, 2022 09:04 WALTER FLANAGAN MD Apr 17, 2022 14:23
== END 2022-04-16 22:55 | disposition home or self-care (01) ==
LOC: WSo 22:02 → LDRP 22:03 → WSo 22:55
PROVIDERS: ATTEND Obstetrics & Gynecology
DX: O36.8130 Decreased fetal movements, third trimester, not applicable or unspecified (principal); Z3A.36 36 weeks gestation of pregnancy
CPT/HCPCS: 99212

== ENCOUNTER 2022-04-29 14:07 | Inpatient (IN) | payer OTHER ==
[2022-04-29] VITALS (22 sets, daily range): BP systolic 98–138; BP diastolic 50–87
[~2022-04-29] VITALS: Ht 162.6 cm; Wt 104.6 kg
[~2022-04-29 14:07] MED LIST changes: +FAMO-119 PO; +FLUO40CA12 PO
[2022-04-29] MEDS ORDERED: MINERAL OIL 30 ML UDC TOP PRN (14:45)
[2022-04-29] MEDS ORDERED: D5 LR IV SOLUTION 1,000 ML IV SCH (14:45)
[2022-04-29 14:57] LABS: BASOPHILS % (AUTO) 0 % (0-10); EOSINOPHILS # (AUTO) 0.1 10^3/uL (0.0-0.3); EOSINOPHILS % (AUTO) 1 % (0-10); HEMATOCRIT 33 % (35-52); LYMPHOCYTES # (AUTO) 1.4 10^3/uL (1.0-4.0); LYMPHOCYTES % (AUTO) 16 % (12-44); MEAN CORPUSCULAR HEMOGLOBIN 28 pg (25-34); MEAN CORPUSCULAR HGB CONC 33 g/dL (32-36); MEAN CORPUSCULAR VOLUME 85 fL (80-99); MEAN PLATELET VOLUME 9.9 fL (9.0-12.2); MONOCYTES # (AUTO) 0.7 10^3/uL (0.0-1.0); MONOCYTES % (AUTO) 8 % (0-12); NEUTROPHILS # (AUTO) 6.5 10^3/uL (1.8-7.8); NEUTROPHILS % (AUTO) 75 % (42-75); PLATELET COUNT 211 10^3/uL (130-400); WHITE BLOOD COUNT 8.7 10^3/uL (4.3-11.0)
[2022-04-29] MEDS ORDERED: HYDROmorphone 2 MG/ML VIAL (DILAUDID) IV ONE (15:00)
[2022-04-29] MEDS ORDERED: HYDROmorphone 2 MG/ML VIAL (DILAUDID) ONE (15:02)
[2022-04-29] MEDS ORDERED: fentaNYL 2 mcg/ml BUPIVA 0.125 100 ML ONE (15:19)
[2022-04-29] MEDS ORDERED: BUPIVACAINE 0.25% 30 ML (SENSORCAINE) VIAL ONE (15:46)
[2022-04-29] MEDS ORDERED: fentaNYL INJ 100 MCG/2 ML AMP ONE (15:46)
[2022-04-29] MEDS ORDERED: ONDANSETRON 4 MG/2 ML (SDV) Z0FRAN IV PRN (16:15)
[2022-04-29] MEDS ORDERED: fentaNYL INJ 100 MCG/2 ML AMP INJ ONE (16:15)
[2022-04-29] MEDS ORDERED: NALOXONE 0.4 MG/ML 1 ML (NARCAN) VIAL IV PRN ×2 (16:15→16:30)
[2022-04-29] MEDS ORDERED: fentaNYL 2 mcg/ml BUPIVA 0.125 100 ML EPI SCH (16:15)
[2022-04-29] MEDS ORDERED: LACTATED RINGERS 1,000 ML IV ONE ×2 (16:15)
--- NOTE | 2022-04-29 16:20 | History & Physical-OB ---
OB - Chief Complaint & HPI Date/Time Date of Admission: Date of Admission: Apr 29, 2022 at 14:33 Date seen by a Provider: Apr 29, 2022 Time Seen by a Provider: 15:30 Chief Complaint/History OB-Reason for Admission/Chief: Onset of Labor Hx : 2 Hx Para: 1 Expected Date of Delivery: May 13, 2022 Gestational Age in Weeks: 38 Gestational Age in Days: 0 Admission Nurse Assessment Rev: Yes History of Labs GBS neg Allergies and Home Medications Allergies Coded Allergies: Penicillins (Unverified Allergy, Unknown, PT TOLERATED AMPICILLIN WITH NO REACTION, 12/16/13) PT HAS NEVER TAKEN PENICILLINS DUE TO A FAMILY TENDENCY TO HAVE SEVERE ALLERGIC REACTIONS Patient Home Medication List Home Medication List Reviewed: Yes Famotidine (Pepcid) 20 Mg Tablet, 20 MG PO BID, (Reported) Entered as Reported by: SU ARRIOLA on 04/16/222250 Fluoxetine HCl (Prozac) 40 Mg Capsule, 40 MG PO DAILY, (Reported) Entered as Reported by: SU ARRIOLA on 04/16/222250 Xiv280/Iron Fumarate/FA/Dss ( 19 Tablet) 1 Each Tablet, 1 EACH PO DAILY, (Reported) Entered as Reported by: ABEL ESTRELLA on 10/15/18 2259 OB - History Hx of Present Care: Yes Ultrasounds: Normal mid trimester US Obstetrical Complications: None Medical Complications: None Delivery History Hx Blood Disorders: No Adverse Rxn to Tranfusion: No Patient Past Medical History n/a Social History/Family History 2nd Hand Smoke Exposure: No Immunizations Influenza Vaccine Up-to-Date: Yes; Up-to-Date Second COVID19 Vaccination: UKNONWN Hepatitis A: Yes Hepatitis B: Yes Tetanus Booster (TDap): Unknown OB - Admission Exam Physical Exam Vitals: Vital Signs 04/29/22 04/29/22 14:10 14:45 Temp 36.3 Pulse 88 Resp 20 B/P (MAP) 136/85 (102) Pulse Ox 95 O2 Delivery Room Air HEENT: NCAT Heart: Rhythm Normal Lungs: Clear Abdomen: Gravid Extremities: Normal Reflexes: Normal Cervical Dilatation: 6cm Effacement: 75% Station: -1 Membranes: Intact Heart Rate: 130's Accelerations: Accelerations Present Decelerations: No Decelerations Short Term Variability: Present Penitentiary Variability: Average (6-25) Contractions on Admission: < 5 Minutes Apart Intensity: Firm Labs Laboratory Tests Test 04/29/22 14:45 Range/Units White Blood Count 8.7 4.3-11.0 10^3/uL Red Blood Count 3.93 3.80-5.11 10^6/uL Hemoglobin 11.0 L 11.5-16.0 g/dL Hematocrit 33 L 35-52 % Mean Corpuscular Volume 85 80-99 fL Mean Corpuscular Hemoglobin 28 25-34 pg Mean Corpuscular Hemoglobin Concent 33 32-36 g/dL Red Cell Distribution Width 13.5 10.0-14.5 % Platelet Count 211 130-400 10^3/uL Mean Platelet Volume 9.9 9.0-12.2 fL Immature Granulocyte % (Auto) 0 % Neutrophils (%) (Auto) 75 42-75 % Lymphocytes (%) (Auto) 16 12-44 % Monocytes (%) (Auto) 8 0-12 % Eosinophils (%) (Auto) 1 0-10 % Basophils (%) (Auto) 0 0-10 % Neutrophils # (Auto) 6.5 1.8-7.8 10^3/uL Lymphocytes # (Auto) 1.4 1.0-4.0 10^3/uL Monocytes # (Auto) 0.7 0.0-1.0 10^3/uL Eosinophils # (Auto) 0.1 0.0-0.3 10^3/uL Basophils # (Auto) 0.0 0.0-0.1 10^3/uL Immature Granulocyte # (Auto) 0.0 0.0-0.1 10^3/uL OB - Assessment/Plan/Diagnosis Assessment Assessment: active labor Admission Dx 31 y o @ 38 weeks Active labor GBS neg Admission Status: Inpatient Order (span 2 midnights) Reason for Inpatient Admission: Active labor at 38 weeks Plan Plan: Expectant Management HEATH ANGELO DO Apr 29, 2022 16:20
[2022-04-29] MEDS ORDERED: BENZOCAINE/MENTHOL (DERMOPLAST) 56 ML CAN TP PRN (16:30)
[2022-04-29] MEDS ORDERED: DIBUCAINE 1% OINTMENT 30 GM TUBE TOP PRN (16:30)
[2022-04-29] MEDS ORDERED: MEASLES,MUMPS,RUBELLA 1 EA INJ SQ ONE (16:30)
[2022-04-29] MEDS ORDERED: TETANUS,DIPTH,PERTUSS P/F (BOOSTRIX) 0.5 ML VIAL IM ONE (16:30)
[2022-04-29] MEDS ORDERED: WITCH HAZEL(TUCKS) 40 EA JAR TOP PRN (16:30)
[2022-04-29] MEDS ORDERED: LIDOCAINE 1% INJ 20 ML VIAL ONE (16:48)
[2022-04-29] MEDS ORDERED: LIDOCAINE 1% INJ 20 ML VIAL INJ ONE (17:00)
[2022-04-29] MEDS: OXYTOCIN PRE-MIX DRIP 500 ML IV SCH ×2 (17:02→17:41)
--- NOTE | 2022-04-29 17:16 | OB Labor & Delivery Record ---
L&D History Date of Service Date of Service: Apr 29, 2022 History Expected Date of Delivery: May 13, 2022 Gestational Age in Weeks: 38 Hx : 2 Hx Para: 1 Complications Events: Routine care Operative Indications (Cesarea: N/A-Vaginal Delivery Intrapartal Events: None L&D Stage1 Stage One Onset of Labor - Date: Apr 29, 2022 Monitors and Tracing Monitor Accelerations: Uniform Monitor Decelerations: Variable Electrical Appliance Preparer Variability: Average (6-10) Short Term Variability: Present Presentation: Vertex Vital Signs VS - Last 72 Hours, by Label 04/29/22 04/29/22 04/29/22 14:10 14:30 14:45 Temp 36.3 Pulse 90 96 88 Resp 20 20 20 B/P (MAP) 134/87 (103) 137/85 (102) 136/85 (102) Pulse Ox 95 O2 Delivery Room Air Room Air Room Air Rupture of Membranes Spontaneous Ruture of Membrane: No Amniotic Membrane Rupture Time: 16:15 Amniotic Membrane Fluid Desc.: Meconium Stained Vaginal Bleeding Description: Normal Show Induction/Anesthesia Epidural Cath Placement - Time: 1600 Progress/Notes Patient presented in active labor 6 cm, significant pain and 1 mg Dilaudid given, she then received an epidural when available anesthesia. She was checked afterward and found to be 9 cm and bulging membranes. AROM performed and was rapidly complete and 0 station. L&D Stage2 Stage Two Stage II Date: Apr 29, 2022 Monitors and Tracing Monitor Mode: External Monitor Accelerations: Uniform Longterm Variability: Moderate (11-25) Short Term Variability: Present Position: Right Occiput Anterior Cord Descript/Complications Cord Vessel Description: 3 Vessels Delivery Type Infant Delivery Method: Spontaneous Vaginal Anterior Shoulder: Right Episiotomy/Perineal Laceration Laceraction(s)/Extensions: Yes Episiotomy Description: Perineal Extension/lac, 2nd degree Location Modifier: Medial Sutures Used: Vicryl Degree (describe repair) 2nd degree perineal laceration repaired using 3-0 rapide and 2-0 vicryl suture. Condition of Delivery 1 minute Comment: 7 5 minute Comment: 8 Notes live female infant weight 7lbs 6oz Condition of Infant Condition of : Living Exam: No Observed Abnormalities Resuscitation Resuscitation: N/A - Spontaneous Resp Delivery Summary Summary Estimated blood loss (mL): 350 Attending at delivery: Heath Angelo DO Condition of Delivery Examined: Cervix Examined, Uterus Explored Post Hemorrhage: No Condition of Mother stable Condition of (s) stable HEATH ANGELO DO Apr 29, 2022 17:16
[2022-04-29] MEDS: IBUPROFEN 600 MG (MOTRIN) TAB PO SCH ×2 (17:39→23:09)
[2022-04-29] MEDS: DOCUSATE SODIUM 100 MG (COLACE) CAP PO SCH (21:00)
[2022-04-29] MEDS ORDERED: CATHETER FLUSH 10 ML SYR IV SCH ×2 (22:00)
[2022-04-30 05:23] VITALS: BP 110/67
[2022-04-30] MEDS: IBUPROFEN 600 MG (MOTRIN) TAB PO SCH ×3 (05:33→17:22)
[2022-04-30 06:58] LABS: BASOPHILS % (AUTO) 0 % (0-10); EOSINOPHILS # (AUTO) 0.1 10^3/uL (0.0-0.3); EOSINOPHILS % (AUTO) 1 % (0-10); HEMATOCRIT 31 % (35-52); HEMOGLOBIN 10.2 g/dL (11.5-16.0); LYMPHOCYTES # (AUTO) 2.2 10^3/uL (1.0-4.0); LYMPHOCYTES % (AUTO) 25 % (12-44); MEAN CORPUSCULAR HEMOGLOBIN 29 pg (25-34); MEAN CORPUSCULAR HGB CONC 33 g/dL (32-36); MEAN CORPUSCULAR VOLUME 86 fL (80-99); MEAN PLATELET VOLUME 10.3 fL (9.0-12.2); MONOCYTES # (AUTO) 0.9 10^3/uL (0.0-1.0); MONOCYTES % (AUTO) 10 % (0-12); NEUTROPHILS # (AUTO) 5.7 10^3/uL (1.8-7.8); NEUTROPHILS % (AUTO) 64 % (42-75); PLATELET COUNT 201 10^3/uL (130-400); WHITE BLOOD COUNT 8.9 10^3/uL (4.3-11.0)
[2022-04-30] MEDS ORDERED: PRENATAL VITAMIN 1 EA TAB PO SCH (07:00)
[2022-04-30 07:40] VITALS: BP 115/74
[2022-04-30] MEDS ORDERED: FERROUS SULF 325 MG (IRON) TAB PO SCH (09:00)
--- NOTE | 2022-04-30 10:48 | Postpartum Progress Note ---
Note Note Day # 1 Subjective: Patient is without complaints. Ambulating, voiding. Tolerating a regular diet without nausea or vomiting. Normal lochia. Pain is well controlled with oral pain medications. Objective: Physical Exam: General - Alert and oriented, no apparent distress Abdomen - Soft, appropriately tender to palpation, non-distended, fundus firm at umbilicus Extremities - no edema, negative Victor Manuel's bilaterally Assessment: POD 1 NVD Acute blood loss anemia Plan: Routine care. Encourage breast feeding. Encourage ambulation. Ferrous sulfate supplementation. Plan for discharge pending dismissal Vitals - Labs Vital Signs - I&O Vital Signs Date Time Temp Pulse Resp B/P (MAP) Pulse Ox O2 Delivery O2 Flow Rate FiO2 04/30/22 07:40 36.6 75 18 115/74 (88) Room Air 04/30/22 05:23 36.0 82 18 110/67 (81) 95 Room Air 04/29/22 21:00 36.3 87 18 124/65 (84) 96 Room Air 04/29/22 18:53 36.0 86 20 118/67 (84) Room Air 04/29/22 18:28 81 20 110/57 (74) Room Air 04/29/22 18:13 81 20 126/57 (80) Room Air 04/29/22 17:57 35.9 82 20 106/59 (75) Room Air 04/29/22 17:43 36.1 99 20 134/68 (90) Room Air 04/29/22 17:15 35.9 99 20 117/59 (78) Room Air 04/29/22 16:57 36.2 86 20 123/58 (79) Room Air 04/29/22 16:41 80 20 109/68 (82) 98 Room Air 04/29/22 16:37 82 20 107/64 (78) 98 Room Air 04/29/22 16:30 90 20 107/65 (79) 98 Room Air 04/29/22 16:25 82 20 106/67 (80) 97 Room Air 04/29/22 16:20 101 20 99/50 (66) 94 Room Air 04/29/22 16:15 96 20 98/53 (68) 96 Room Air 04/29/22 16:05 92 20 134/79 (97) 96 Room Air 04/29/22 16:00 91 20 138/85 (102) 94 Room Air 04/29/22 15:45 75 20 128/71 (90) 94 Room Air 04/29/22 15:30 81 20 125/76 (92) 94 Room Air 04/29/22 15:10 85 20 118/75 (89) 94 Room Air 04/29/22 14:45 88 20 136/85 (102) Room Air 04/29/22 14:45 88 20 136/85 (102) 94 Room Air 04/29/22 14:30 96 20 137/85 (102) Room Air 04/29/22 14:10 36.3 90 20 134/87 (103) 95 Room Air 04/29/22 14:10 36.3 90 20 95 Room Air I & O 04/30/22 07:00 Intake Total 300 ml Balance 300 ml Labs Laboratory Tests 04/29/22 14:45: White Blood Count 8.7, Red Blood Count 3.93, Hemoglobin 11.0L, Hematocrit 33L, Mean Corpuscular Volume 85, Mean Corpuscular Hemoglobin 28, Mean Corpuscular Hemoglobin Concent 33, Red Cell Distribution Width 13.5, Platelet Count 211, Mean Platelet Volume 9.9, Immature Granulocyte % (Auto) 0, Neutrophils (%) (Auto) 75, Lymphocytes (%) (Auto) 16, Monocytes (%) (Auto) 8, Eosinophils (%) (Auto) 1, Basophils (%) (Auto) 0, Neutrophils # (Auto) 6.5, Lymphocytes # (Auto) 1.4, Monocytes # (Auto) 0.7, Eosinophils # (Auto) 0.1, Basophils # (Auto) 0.0, Immature Granulocyte # (Auto) 0.0, Syphilis Serology Non-Reactive 04/30/22 06:31: White Blood Count 8.9, Red Blood Count 3.58L, Hemoglobin 10.2L, Hematocrit 31L, Mean Corpuscular Volume 86, Mean Corpuscular Hemoglobin 29, Mean Corpuscular Hemoglobin Concent 33, Red Cell Distribution Width 13.5, Platelet Count 201, Mean Platelet Volume 10.3, Immature Granulocyte % (Auto) 0, Neutrophils (%) (Auto) 64, Lymphocytes (%) (Auto) 25, Monocytes (%) (Auto) 10, Eosinophils (%) (Auto) 1, Basophils (%) (Auto) 0, Neutrophils # (Auto) 5.7, Lymphocytes # (Auto) 2.2, Monocytes # (Auto) 0.9, Eosinophils # (Auto) 0.1, Basophils # (Auto) 0.0, Immature Granulocyte # (Auto) 0.0 HEATH ANGELO DO Apr 30, 2022 10:48
--- NOTE | 2022-04-30 10:49 | Discharge Inst-Women's Service ---
Discharge Inst-Women's Serv Depart Medication/Instructions New, Converted or Re-Newed RX: Transmitted to Pharmacy Final Diagnosis PPD 1 NVD Problems Reviewed?: Yes Consults/Follow Up Additional Follow Up: Yes Orders/Referrals Dr. Angelo in 6 weeks Activity Activity: Activity as Tolerated Driving Instructions: No Driving for 1 Week NO SMOKING: NO SMOKING Nothing Inside Vagina: No Douching, No [place], No Tampons Diet Discharge Diet: No Restrictions Symptoms to Report to : Bleeding Excessive, Pain Increased, Fever Over 101 Degrees F, Vaginal Bleeding Increase, Questions/Concerns For Any Problems or Questions: Contact Your Physician HEATH ANGELO DO Apr 30, 2022 10:49
[2022-04-30] MEDS ORDERED: BENZ78AE5 TP (10:50)
[2022-04-30] MEDS ORDERED: DOCU100C37 PO (10:50)
[2022-04-30] MEDS ORDERED: DIBU30OI TOP (10:50)
[2022-04-30] MEDS ORDERED: IBUP-844 PO (10:50)
[2022-04-30 11:35] VITALS: BP 133/81
[2022-04-30] MEDS: DOCUSATE SODIUM 100 MG (COLACE) CAP PO SCH (11:35)
--- NOTE | 2022-04-30 14:22 | Anesthesia-Regional Post-Op ---
Regional Patient Condition Mental Status: Alert, Oriented x3 Circulation: Same as Pre-Op Headache: Absent Sensation: Full Recovery Motor Block: Absent Post Op Complications Complications None Follow Up Care/Instructions Patient Instructions None needed. Anesthesia/Patient Condition Patient is doing well, no complaints, stable vital signs, no apparent adverse anesthesia problems. No complications reported per nursing. MARIE WEBER CRNA Apr 30, 2022 14:22
[2022-04-30 16:18] VITALS: BP 123/85
== END 2022-04-30 20:45 | disposition home or self-care (01) | DRG 806 ==
LOC: WSo 14:07 → LDRP 14:07 → WSo 14:31 → LDRP 14:33
PROVIDERS: ADMIT Obstetrics & Gynecology; ATTEND Obstetrics & Gynecology
PROC: 10E0XZZ Delivery of Products of Conception, External Approach (ICD-10-PCS; principal; 2022-04-29)
PROC: 0KQM0ZZ Repair Perineum Muscle, Open Approach (ICD-10-PCS; 2022-04-29)
PROC: 0W8NXZZ Division of Female Perineum, External Approach (ICD-10-PCS; 2022-04-29)
DX: O77.0 Labor and delivery complicated by meconium in amniotic fluid (principal); D62 Acute posthemorrhagic anemia; Z37.0 Single live birth; O70.1 Second degree perineal laceration during delivery; Z3A.38 38 weeks gestation of pregnancy; O90.81 Anemia of the puerperium
CPT/HCPCS: 36415; 85025; 86780; 86850; 86900; 86901; 99212